=== PATIENT | female | born 1955 | race Caucasian/White ===

== ENCOUNTER 2018-06-17 12:00 | Outpatient (REF) | payer BC, SELFPAY ==
[2018-06-17 13:10] LABS: Bilirubin Negative (Negative); Blood Small (Negative); Clarity Clear; Glucose Negative (Negative); Ketones Negative (Negative); Leukocyte Esterase Small (Negative); Nitrite Negative (Negative); Specific Gravity 1.015 (1.005-1.025); Urobilinogen 0.2 EU/dL (Up TO 0.2); pH 8.5 (5-8)
[2018-06-17 13:23] LABS: Epithelial Cells Few HPF (Negative); WBC >50 HPF (0-5)
[2018-06-17 13:24] LABS: Bacteria Few HPF (Negative); Casts Negative LPF (Negative); Crystals Negative HPF (Negative); Mucus Negative (Negative)
[2018-06-17 13:25] LABS: C & S Indicated? Yes; Other Cells Few Renal (Negative)
== END 2018-06-17 12:20 ==
LOC: LBN 12:00
PROVIDERS: Visit Provider Family Medicine
DX: N39.0 Urinary tract infection, site not specified (principal)
CPT/HCPCS: 87077; 81003; 81015; 87086; 87186

== ENCOUNTER 2018-08-05 13:15 | Outpatient (REF) | payer BC, SELFPAY ==
[2018-08-05 14:53] LABS: Bilirubin Negative (Negative); Blood Moderate (Negative); Clarity Clear; Glucose Negative (Negative); Ketones Negative (Negative); Leukocyte Esterase Small (Negative); Nitrite Negative (Negative); Specific Gravity 1.015 (1.005-1.025); Urobilinogen 0.2 EU/dL (Up TO 0.2); pH 7.5 (5-8)
[2018-08-05 15:05] LABS: Bacteria Rare HPF (Negative); C & S Indicated? Yes; Casts Negative LPF (Negative); Crystals Negative HPF (Negative); Epithelial Cells Rare HPF (Negative); Mucus Negative (Negative); Other Cells Rare Transitional (Negative); RBC 0-2 (0-2); WBC >50 HPF (0-5)
== END 2018-08-05 13:35 ==
LOC: LBN 13:15
DX: R31.9 Hematuria, unspecified (principal)
CPT/HCPCS: 81003; 81015; 87086

== ENCOUNTER 2018-08-26 02:59 | Outpatient (CLI) | payer BC, SELFPAY ==
[2018-08-26 11:00] LABS: Bilirubin Negative (Negative); Blood Trace-intact (Negative); Clarity Clear; Glucose Negative (Negative); Ketones Negative (Negative); Leukocyte Esterase Moderate (Negative); Nitrite Negative (Negative); Specific Gravity 1.015 (1.005-1.025); Urobilinogen 0.2 EU/dL (Up TO 0.2); pH 7.5 (5-8)
[2018-08-26 11:11] LABS: Epithelial Cells Few HPF (Negative); Other Cells Few Transitional (Negative); RBC 0-2 (0-2)
[2018-08-26 11:12] LABS: Bacteria Rare HPF (Negative); C & S Indicated? Yes; Casts Negative LPF (Negative); Crystals Negative HPF (Negative); Mucus Trace (Negative)
== END 2018-08-26 03:19 ==
DX: N39.0 Urinary tract infection, site not specified (principal); R31.9 Hematuria, unspecified
CPT/HCPCS: 81003; 81015; 87086

== ENCOUNTER 2018-11-04 02:24 | Outpatient (CLI) | payer BC, SELFPAY ==
[2018-11-04 11:06] LABS: Bilirubin Negative (Negative); Blood Negative (Negative); Clarity Clear; Glucose Negative (Negative); Ketones Negative (Negative); Leukocyte Esterase Trace (Negative); Nitrite Negative (Negative); Specific Gravity 1.015 (1.005-1.025); Urobilinogen 0.2 EU/dL (Up TO 0.2); pH 7.5 (5-8)
[2018-11-04 11:48] LABS: Bacteria Rare HPF (Negative); C & S Indicated? Yes; Casts Negative LPF (Negative); Crystals Negative HPF (Negative); Epithelial Cells Few HPF (Negative); Mucus Negative (Negative); Other Cells Few Renal (Negative)
== END 2018-11-04 02:44 ==
DX: R31.21 Asymptomatic microscopic hematuria (principal)
CPT/HCPCS: 81003; 81015; 87086

== ENCOUNTER 2019-01-21 00:36 | Outpatient (CLI) | payer BC, SELFPAY ==
--- NOTE | 2019-01-21 07:50 | DI.MAMMO_ITS ---
SYMPTOM/DIAGNOSIS: SCREENING, Z12.31 MAMMOGRAM: Mammograms were interpreted according to the usual protocol including computer analysis with CAD system, tomosynthesis and C view imaging. The breasts are heterogeneously radiodense. No dominant masses or microcalcification. There has been no significant interval change. SUMMARY: No evidence of malignancy, Category 1. Yearly screening mammography is recommended. Breast density category C. MQSA ASSESSMENT OF FINDINGS: Negative. Category 1. Patient will receive a letter notifying them of these results. Bi-RADS category C. The breasts are heterogeneously dense, which may obscure small masses.
--- NOTE | 2019-01-21 07:54 | DI.RAD_ITS ---
SYMPTOM/DIAGNOSIS: SHOULDER PAIN M25.512 LEFT SHOULDER: The bony structures are normally mineralized. The glenohumeral joint is intact. There are mild degenerative changes involving the AC joint.
[2019-01-21 09:05] LABS: ALT 31 U/L (12-78); AST 24 U/L (15-37); Albumin 4.2 g/dL (3.4-5.0); Alkaline Phosphatase 97 U/L (46-116); Anion Gap 9.7 mmol/L (3-11); BUN 18 mg/dL (7-18); Bilirubin, Total 0.5 mg/dL (0.2-1.0); CO2 28.3 mmol/L (21.0-32.0); CREATININE 0.76 mg/dL (0.55-1.02); Calcium 9.2 mg/dL (8.5-10.1); Chloride 99 mmol/L (98-107); Glucose 92 mg/dL (70-100); Potassium 4.1 mmol/L (3.5-5.1); Sodium 137 mmol/L (136-145); Total Protein 8.1 g/dL (6.4-8.2)
== END 2019-01-21 00:56 ==
DX: Z12.31 Encounter for screening mammogram for malignant neoplasm of breast (principal); M25.512 Pain in left shoulder; M21.611 Bunion of right foot; M21.612 Bunion of left foot; M54.2 Cervicalgia; M85.80 Other specified disorders of bone density and structure, unspecified site; R31.21 Asymptomatic microscopic hematuria; Z00.00 Encounter for general adult medical examination without abnormal findings
CPT/HCPCS: 36415; 77063; 77067; 80053; 73030

== ENCOUNTER 2019-04-05 12:18 | Outpatient (REF) | payer BC, SELFPAY ==
--- NOTE | 2019-04-05 10:20 | PAPFTD_PTH ---
PATIENT: Anat Sneed LOC: [facility] U#:[id number] AGE/SX: 64/F ROOM: RE04/05/[address]: Uzma Eid MD : 1955 BED: DIS: 04/05/2019 SPEC #: [id number] RECD: 04/05/19 18:33 STATUS: OLIVER REQ #: [id number] JV: 04/05/19 10:[address]: Uzma Lucas DEPT: [facility] Cytology RECD BY: Chantal Walker ENTERED: 04/05/19 18:33 SP TYPE: PAPFTD YENY DR: Sera Pacheco APRN Tissues: 1 - CX/ENDOCX FOR PAP SMEARS Procedures: PAP THIN PREP/UVM Diagnostic Comments: [id number] (UNSATISFACTORY FOR EVALUATION)
== END 2019-04-05 12:38 ==
LOC: LBN 12:18
PROVIDERS: Visit Provider Internal Medicine
DX: R30.0 Dysuria (principal); Z12.4 Encounter for screening for malignant neoplasm of cervix; Z11.51 Encounter for screening for human papillomavirus (HPV)
CPT/HCPCS: 87077; 88175; 87086; 87186; 87624

== ENCOUNTER 2020-01-25 01:38 | Outpatient (CLI) | payer MEDICARE, BC, SELFPAY ==
[2020-01-25 08:59] LABS: ALT 34 U/L (14-59); AST 29 U/L (15-37); Alkaline Phosphatase 86 U/L (46-116); Anion Gap 9.1 mmol/L (3-11); BUN 17 mg/dL (7-18); Bilirubin, Total 0.5 mg/dL (0.2-1.0); CO2 27.9 mmol/L (21.0-32.0); CREATININE 0.79 mg/dL (0.55-1.02); Calcium 9.3 mg/dL (8.5-10.1); Calculated LDL 129 mg/dL (<100); Chloride 101 mmol/L (98-107); Cholesterol 248 mg/dL (<200); Glucose 92 mg/dL (74-106); HDL Cholesterol 110 mg/dL (40-60); Potassium 4.2 mmol/L (3.5-5.1); Sodium 138 mmol/L (136-145); Total Protein 7.6 g/dL (6.4-8.2); Triglyceride 45 mg/dL (<150)
== END 2020-01-25 01:58 ==
DX: M21.611 Bunion of right foot (principal); M21.612 Bunion of left foot; Z00.00 Encounter for general adult medical examination without abnormal findings; Z13.220 Encounter for screening for lipoid disorders; E78.5 Hyperlipidemia, unspecified
CPT/HCPCS: 36415; 80053; 80061

== ENCOUNTER 2021-01-26 02:36 | Outpatient (CLI) | payer MEDICARE, BC, SELFPAY ==
[2021-01-26 09:13] LABS: ALT 29 U/L (14-59); AST 26 U/L (15-37); Albumin 3.9 g/dL (3.4-5.0); Alkaline Phosphatase 92 U/L (46-116); Anion Gap 8.1 mmol/L (3-11); BUN 24 mg/dL (7-18); Bilirubin, Total 0.4 mg/dL (0.2-1.0); CO2 28.9 mmol/L (21.0-32.0); CREATININE 0.7 mg/dL (0.55-1.02); Calcium 9.1 mg/dL (8.5-10.1); Calculated LDL 135 mg/dL (<100); Chloride 102 mmol/L (98-107); Cholesterol 252 mg/dL (<200); Glucose 87 mg/dL (74-106); HDL Cholesterol 108 mg/dL (40-60); Potassium 4.2 mmol/L (3.5-5.1); Sodium 139 mmol/L (136-145); Total Protein 7.4 g/dL (6.4-8.2); Triglyceride 46 mg/dL (<150)
== END 2021-01-26 02:37 | disposition home or self-care (01) ==
LOC: LBO 02:36
DX: E78.5 Hyperlipidemia, unspecified (principal); Z00.00 Encounter for general adult medical examination without abnormal findings
CPT/HCPCS: 36415; 80053; 80061

== ENCOUNTER 2022-01-18 01:25 | Outpatient (CLI) | payer MEDICARE, BC, SELFPAY ==
--- OUTSIDE RECORDS SUMMARY | 2022-01-18 01:27 | XMS_ITS | Encounter Summary ---
:1955 Author Organization [facility] [place] [address] Care Team Providers Name Role Phone Sera Pacheco APRN Primary Care Provider Encounter Details Date Type Department Care Team Description 03/29/2020 Hospital Encounter Mammography/DXA at [facility], Encounter for [facility] screening mammogram [facility] cancer [facility] [address] [place], [place] [facility] [id number] GYNECOLOGY [phone] [place] [address] Social History Tobacco Use Types Packs/Day Years Used Date Never Smoker Smokeless Tobacco: Never Used Alcohol Use Standard Drinks/Week Comments Yes 0 (1 standard drink = 0.6 oz pure alcoho l) 1/2 beer per week Alcohol Habits Answer Date Recorded How often do you have a drink containing alcohol? Not asked How many drinks containing alcohol do you have on a Not aske d typical day when you are drinking? How often do you have six or more drinks on one Not asked occasion? Comment: 1/2 beer per week 04/21/2019 Sex Assigned at Date Recorded Not on file documented as of this encounter Medications at Time of Discharge Medication Sig Dispensed Refills Start Date End Date omega-3 acid ethyl esters Take 2 g by mouth 2 0 (LOVAZA) 1 gram Capsule times daily. multivitamin (THERAGRAN) Take 1 tablet by 0 tablet mouth daily. CALCIUM CITRATE/VITAMIN D3 Take by mouth. 0 (CITRACAL + D ORAL) ascorbic acid (VITAMIN C) Take 500 mg by mouth 0 500 mg tablet daily. Flaxseed Oil 1,000 mg Cap Take by mouth. 0 documented as of this encounter Plan of Treatment Not on filedocumented as of this encounter Procedures Procedure Name Priority Date/Time Associated Diagnosis Comme nts MAMMO SCREENING CAD Routine 03/29/2020 11:51 AM Encounter for Results for this AND SAGE BILATERAL EDT screening mammogram pr ocedure are in for breast cancer the result s section. documented in this encounter Results Mammo Screening Cad and Sage Bilateral (03/29/2020 11:51 AM EDT) Anatomical Region Laterality Modality Breast Bilateral Mammography Specimen (Source) Anatomical Location Collection Method / Collectio n Time Received Time / Laterality Volume Narrative 03/29/2020 12:14 PM EDT BILATERAL MAMMOGRAPHY REASON FOR EXAM: Screening TECHNIQUE: CC and MLO views were obtaine d of each breast using standard 2-D mammography as well as 3-D tomosynth esis. Computer aided detection was used. This is compared with prior images . FINDINGS: ??The breasts are heterogeneou sly dense, which may obscure small masses. There are no suspicious microcal cifications, masses, or areas of distortion. The pattern is stable. CONCLUSION: No mammographic evidence of malignancy. RECOMMENDATION: Regular screening mammograms starting be tween age 40 and 50 reduces the risk of from breast cancer. All screening tests have both risks and benefits. These risks and benefits should be assessed for each individual p atient through discussion with their provider to determine their prefer red breast cancer screening schedule. Women should report any breast changes t o a health care provider right away. Some women, because of their family hist ory, a genetic tendency, or other factors, should be screened with annual breast MRI as well as with mammograms. (The number of women who fal l into this category is very small). Patients and health care provide rs should discuss each patient? s history to decide if earlier screening a nd/or breast MRI are appropriate. Screening should continue as long as a w homero is in good health and is expected to live 10 years or longer. Screening mammography may not detect 10- 15% of breast cancers. A result letter has been sent to this pa yolanda by [facility]. BIRADS CATEGORY 1: NEGATIVE Angelika Dale MD IMG MAMMO ORDERABLES documented in this encounter Visit Diagnoses Diagnosis Encounter for screening mammogram for br east cancer documented in this encounter Care Teams Die Mounter Relationship Specialty Start Date End Date Sera Pacheco, PORCELAIN MIXER PCP - General Family Medicine 04/06/19 [address] [place] [address] documented as of this encounter
--- OUTSIDE RECORDS SUMMARY | 2022-01-18 01:27 | XMS_ITS | Encounter Summary ---
:1955 Author Organization [place] [address] Care Team Providers Name Role Phone Agustín Nesbitt MD Primary Care Provider Reason for Visit Reason Comments Back Pain radiates into top of butt bi lat Encounter Details Date Type Department Care Team Description 03/14/2011 Office Visit [facility], LBP (lo w back pain) Annemarie HIDE TRIMMER (Primary Dx) [facility] [address] [place], [place] [facility] [id number] [place] [address] [phone] Social History Tobacco Use Types Packs/Day Years Used Date Never Smoker Sex Assigned at Date Recorded Not on file documented as of this encounter Last Filed Vital Signs Vital Sign Reading Time Taken Comments Blood Pressure 112/68 03/14/2011 8:39 AM EDT Pulse 66 03/14/2011 8:39 AM EDT Temperature - - Respiratory Rate - - Oxygen Saturation - - Inhaled Oxygen Concentration - - Weight 49.4 kg (109 lb) 03/14/2011 8:39 AM EDT Height 156.2 cm (5' 1.5) 03/14/2011 8:39 AM EDT Body Mass Index 20.26 03/14/2011 8:39 AM EDT documented in this encounter Progress Notes [facility], HIDE TRIMMER - 03/14/2011 9:52 AM EDT Anat Sneed is a 56 y.o. female is seen today at the request of AGUSTÍN NESBITT MD. Chief Complaint: Back pain, coccyx pain History of present illness: In March she missed a step, landing on her tailbone, has had some component of back and coccyx pain since. Previous HNP Tx w/ PT. Symptoms today: She has low-back pain that is present daily, on rated 3/10. She has pain in her coccyx. Symptoms are worse with driving, feels better with standing. With yoga can have numbness in the anterior puckett and anterior thigh until she changes positions. Has been treated with a wedge for her coccyx pain. ROS: Can have night sweats, no other GI, , or constitutional symptoms. Observation: She is pleasant, has good eye contact, full range of affect. Has a stated height of 5 foot 1-1/2 inches. Stated weight of 190 pounds. She walks with a normal gait. Can heel walk and toe walk. Has grossly level shoulders, hips, knees. Has no pain with palpation along her spine. From her waist can flex forward to the floor, she extendsnormally, does have increased lower back pain with both of these maneuvers as well as lateral rotation and twisting. Motor evaluation 5 over 5. Has a normal sensory evaluation to touch. Reflexes are brisk in the upper and lower extremities. No White. No clonus. No Babinski. Palpable pulses x2. Imaging: Has coccyx pictures from last year with no formal read. Coccyx seems to be in fair alignment Impressions: Chronic back and coccyx pain. Recommendations: Anat Sneed is a 56 y.o. female is seen today for ongoing back and coccyx pain rated3/10. She denies any leg symptoms with the exception of intermittently when she does yoga that can contribute to left anterior puckett and thigh. She has a history of having a prior disc in 2001, this wastreated successfully with physical therapy. Subsequent MRI does show that the disc extrusion had been absorbed. Seems that she fell at home in March of last year and has had some component of pain since that time. She's been on treating with, coccyx cushion and [id number] anti-inflammatories that she can take on a limited basis due to to stomach irritation. We discussed treatment options. This would include physical therapy, therapeutic dose of anti-inflammatories. Given her pain is 3/10, she would not qualify for any injections or surgical intervention. We have agreed on not doing an MRI at this point unless we will be doing something different based onthe pictures. I have given her the back book. She'll try Mobic. If she's not improved, she may call back I'll be more than happy to see her back and consider imaging.. documented in this encounter Plan of Treatment Not on filedocumented as of this encounter Visit Diagnoses Diagnosis LBP (low back pain) - Primary Lumbago documented in this encounter Care Teams Grain Oilseed Or Pasture Farm Manager Relationship Specialty Start Date End Date Agustín Nesbitt MD PCP - General 05/15/10 04/05/19 [address] [place] [address] documented as of this encounter
--- OUTSIDE RECORDS SUMMARY | 2022-01-18 01:27 | XMS_ITS | Encounter Summary ---
:1955 Author Organization [facility] [place] [address] Care Team Providers Name Role Phone Uzma Jefferson MD Primary Care Provider Encounter Details Date Type Department Care Team Description 03/13/2011 Abstract [facility] at [facility], [facility], [facility] [place] [address] [facility] CLINIC [phone] [place] [address] (Wo rk) Social History Tobacco Use Types Packs/Day Years Used Date Never Assessed Sex Assigned at Date Recorded Not on file documented as of this encounter Plan of Treatment Not on filedocumented as of this encounter Visit Diagnoses Not on filedocumented in this encounter Care Teams Residential Appraiser Relationship Specialty Start Date End Date zUma Jefferson MD PCP - General 05/15/10 04/05/19 [address] [place] [address] documented as of this encounter
--- OUTSIDE RECORDS SUMMARY | 2022-01-18 01:27 | XMS_ITS | Encounter Summary ---
:1955 Author Organization [facility] [place] [address] Care Team Providers Name Role Phone Sera Pacheco APRN Primary Care Provider Encounter Details Date Type Department Care Team Description 06/19/2020 Telephone Obstetrics and [place]necology [place] [address] Social History Tobacco Use Types Packs/Day Years [...] on file documented as of this encounter Miscellaneous Notes Telephone Encounter - Keely Zamarripa RN - 06/19/2020 11:15 AM ESTSummary: dexascan TELEPHONE NOTE Caller: Keely Zamarripa RN Reason for call: A number of message have been sent to Dr Dale for this patient and she has not responded. The patient would like to know if she should keep doing what she has been doing? Could you please reach out to the patient? Plan/Instructions: Patient feeling exasperated because she has called several times and hasn't hard from Dr. Dale. Patient states it's totally fine if Dr. Dale wanted to reply to her in a [employer] portal message. * What Anat is looking for specifically: She had a Dexascan recently and was comparing it to her scan from 3 years ago. She is concerned about the changes and wanted to get your advice. Is the differences from the two different machines? Or is should she increase her Calcitrol? She is curently taking 2 a day, walks every day and increasing her calcium intake. ----- Message from Nasima Alston sent at 06/19/2020 11:04 AM EST ----- Regarding: DEXASCAN Caller's name: Anat Sneed Call back #: [phone] Patient's provider/team: Soumya Dale Reason for call: A number of message have been sent to Dr Dale for this patient and she has not responded. The patient would like to know if she should keep doing what she has been doing? Could you please reach out to the patient? documented in this encounter Plan of Treatment Not on filedocumented as of this encounter Visit Diagnoses Not on filedocumented in this encounter Care Teams Regional Guide Relationship Specialty Start Date End Date Sera Pacheco APRN PCP - General Family Medicine 04/06/19 [address] [place] [address] documented as of this encounter
--- OUTSIDE RECORDS SUMMARY | 2022-01-18 01:27 | XMS_ITS | Encounter Summary ---
:1955 Author Organization [facility] [place] [address] Care Team Providers Name Role Phone Sera Pacheco APRN Primary Care Provider Encounter Details Date Type Department Care Team Description 04/26/[address] [facility] [place] [address] UROLOGY DEPT [phone] [place], [place] [address] (Wo rk) Social History Tobacco Use Types [...] this encounter Miscellaneous Notes Telephone Encounter - Chuy Reyes - 04/26/2019 9:34 AM EST Patient calls asking that a referral be placed for [facility] REAL ESTATE MANAGER per her visit with Dr. Cadet last week. She originally thought she would be seen locally but has decided to come here for this appt. She also prefers to see a female provider. I have placed the referral for her. documented in this encounter Plan of Treatment Not on filedocumented as of this encounter Visit Diagnoses Not on filedocumented in this encounter Care Teams Oil And Gas Exploration Technician Relationship Specialty Start Date End Date Sera Pacheco, BIOTECH PRODUCTION SPECIALIST PCP - General Family Medicine 04/06/19 [address] [place] [address] documented as of this encounter
--- OUTSIDE RECORDS SUMMARY | 2022-01-18 01:27 | XMS_ITS | Encounter Summary ---
:1955 Author Organization [facility] [place] [address] Care Team Providers Name Role Phone Sera Pacheco APRN Primary Care Provider Reason for Referral Diagnostic Test (Routine) - Closed Specialty Diagnoses / Procedures Referred By Contact Refer red To Contact Radiology Diagnoses Asymptomatic menopausal state Osteopenia, unspecified location Angelika Dale MD [facility] Rad Xray Procedures DXA Central Spine, Hip, and/or Whole Body (Generic) [facility] [address] [place] [address] OBSTETRICS [place] [address] [place] [address] Referral ID Status Reason Start Date Expiration Date Visits V isits Requested Authorized [id number] Closed Specialty 03/29/2020 09/27/2021 1 1 Service Requested Reason for Visit Reason Comments Annual Exam Encounter Details Date Type Department Care Team Description 03/29/2020 Office Visit Obstetrics Angelika Rodriguez MD Osteopenia, unspecified location; Gynecology at [facility] Asymptomatic menopausal stat e [facility] [address] OBSTETRICS & [place], [place] GYNECOLOGY [address] [place] [address] [phone] Social History Tobacco Use Types Packs/Day Years [...] Sign Reading Time Taken Comments Blood Pressure 134/82 03/29/2020 12:53 PM EDT Pulse 89 03/29/2020 12:53 PM EDT Temperature 36.6 ??C (97.8 ??F) 03/29/2020 12:53 PM EDT Respiratory Rate - - Oxygen Saturation 100% 03/29/2020 12:53 PM EDT Inhaled Oxygen Concentration - - Weight 49.9 kg (110 lb 1.6 oz) 03/29/2020 12:53 PM EDT Height 155.8 cm (5' 1.34) 03/29/2020 12:53 PM EDT Body Mass Index 20.57 03/29/2020 12:53 PM EDT documented in this encounter Patient Instructions Patient InstructionsFosterAngelika MD - 03/29/2020 1:00 PM EDT It was good to see you. We will be in touch about your DEXA appointment. documented in this encounter Progress Notes Angelika Dale MD - 03/29/2020 1:00 PM EDT 65 yo here for annual exam. DId mammo today --results negative. No room server complaint --one episode of spotting after intercourse -- had significant vaginal dryness. Seen last year for fibroids seen on CT scan; she had known fibroids for many years and pre CT they had actually decreased in size. Was also having problems with frequent UTIs -- has not bled since last Oct so is very happy about that. No new health issues. Recalls having DEXA scan about 3 years ago and being told she had osteopenia. She wonder if she should have another. No abnl Paps since one a very long time (>30 years) ago Up to date with colonscopy. Recent labs reviewed; chol 248, LDL 129, HDL 110 No other new health issues. 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 BP today 134/8s Breasts: no mass Abd: nontender EGBUS: normal Bimanual: uterus AV, enlarged and irregular, jazmin 10-12 week size Will order DEXA. Discussed Paps no longer indicated. RTC for annual or prn. documented in this encounter Plan of Treatment Not on filedocumented as of this encounter Results DXA Central Spine, Hip, and/or Whole Body (Generic) (04/18/2020 1:23 PM EDT) Anatomical Region Laterality Modality C-spine, Hip N/A Other Specimen (Source) Anatomical Location Collection Method / Collectio n Time Received Time / Laterality Volume Impressions 04/18/2020 2:58 PM EDT The measurements fulfill the WHO classification for osteoporosis. The fracture risks are increased. Estimating Fracture Risk: ? The relationship between bone mineral de nsity (BMD) and risk of fracture is well established. As BMD decreases, risk incr eases. Quantifying risk is difficult and is usually limited to estimation of the relative risk - a term which may have limited value when trying to discuss an individual's risk. Estimating the absolute risk for a patient requires an understanding of the incidence rate in a given population and consideration of mu ltiple, partially independent, risk factors in addition to BMD. ? The World Health Organization (WHO) has developed a fracture risk prediction tool that calculates a ten-year risk of major osteoporotic fracture based on femoral neck bone density measurements a nd nine clinical risk factors for individuals who have not been treated fo r osteoporosis. This is available through an interactive web-based interfa ce (http://www.she.ac.uk/FRAX/) and can be used to estimate a given patient's ab solute risk of major osteoporotic fracture or hip fracture over the next 1 0 years. These estimates may prove useful when discussing risk with a patie nt. It is important, however, to understand the tool's limitations and ho w a given individual's risk might differ from the tool's estimate. The tool does not take into account the dose-response associated with most risk factors. For e xample, the significant increase in risk associated with multiple prior fractures compared to a single prior fracture is not taken into account. Similarly, the l ocation of a previous fracture, the amount of glucocorticoids and number of cigarettes smoked are not considered. These limitations are discussed in a Fr equently Asked Questions section of the FRAX website which you are encouraged to review. ? DEXA data sheets with BMD measurements a nd plots are available in [facility] under the imaging tab. Paper copies will be sent to providers without E- access. If you have received this report without e data sheet and do not have access to [employer], please contact Radiology [facility] at [phone] Friday thru Friday 8am-4pm. Thank you for letting us participate in the care of this patient. For questions regarding this report, please contact e number below. ? Narrative 04/18/2020 2:58 PM EDT EXAMINATION: DXA CENTRAL SPINE, HIP, AND/OR WHOLE BODY (GENERIC) CLINICAL HISTORY: f/u [prior screen iwht osteopenia. ??was at least 3 years ago, ,entered by ordering service TECHNIQUE: Scans were acquired at the val mbar spine, and left hip. COMPARISON: None FINDINGS: Femoral neck BMD: 0.571 g/cm2 Lowest T-score at a diagnostic region of interest: T-score: -2.8, BRODERICK: Lumbar spine, WHO di agnosis: Osteoporosis Procedure Note Jazzy Poe MD - 04/18/2020Formatt ing of this note might be different from the original. EXAMINATION: DXA CENTRAL SPINE, HIP, AND /OR WHOLE BODY (GENERIC) CLINICAL HISTORY: f/u [prior screen iwht osteopenia. was at least 3 years ago, ,entered by ordering service TECHNIQUE: Scans were acquired at the val mbar spine, and left hip. COMPARISON: None FINDINGS: Femoral neck BMD: 0.571 g/cm2 Lowest T-score at a diagnostic region of interest: T-score: -2.8, BRODERICK: Lumbar spine, WHO di agnosis: Osteoporosis IMPRESSION The measurements fulfill the WHO classif ication for osteoporosis. The fracture risks are increased. Estimating Fracture Risk: ? The relationship between bone mineral de nsity (BMD) and risk of fracture is well established. As BMD decreases, risk incr eases. Quantifying risk is difficult and is usually limited to estimation of the relative risk - a term which may have limited value when trying to discuss an individual's risk. Estimating the absolute risk for a patient requires an understanding of the incidence rate in a given population and consideration of mu ltiple, partially independent, risk factors in addition to BMD. ? The World Health Organization (WHO) has developed a fracture risk prediction tool that calculates a ten-year risk of major osteoporotic fracture based on femoral neck bone density measurements a nd nine clinical risk factors for individuals who have not been treated fo r osteoporosis. This is available through an interactive web-based [employer] (http://www.shef.ac.uk/FRAX/) and can be used to estimate a given patient's ab solute risk of major osteoporotic fracture or hip fracture over the next 1 0 years. These estimates may prove useful when discussing risk with a patie nt. It is important, however, to understand the tool's limitations and ho w a given individual's risk might differ from the tool's estimate. The tool does not take into account the dose-response associated with most risk factors. For e xample, the significant increase in risk associated with multiple prior fractures compared to a single prior fracture is not taken into account. Similarly, the l ocation of a previous fracture, the amount of glucocorticoids and number of cigarettes smoked are not considered. These limitations are discussed in a Fr equently Asked Questions section of the FRAX website which you are encouraged to review. ? DEXA data sheets with BMD measurements a nd plots are available in [employer] under the imaging tab. Paper copies will be sent to providers without E- access. If you have received this report without e data sheet and do not have access to [employer], please contact Radiology [facility] at [phone] Friday thru Friday 8am-4pm. Thank you for letting us participate in the care of this patient. For questions regarding this report, please contact e number below. Angelika Dale MD IMG DEXA ORDERABLES documented in this encounter Visit Diagnoses Diagnosis Osteopenia, unspecified location Asymptomatic menopausal state Asymptomatic postmenopausal status (age- related) (natural) Asymptomatic menopausal state Asymptomatic postmenopausal status (age- related) (natural) Osteopenia, unspecified location documented in this encounter Care Teams Colloid Mill Operator Relationship Specialty Start Date End Date Sera Pacheco APRN PCP - General Family Medicine 04/06/[address] [place] [address] documented as of this encounter
--- OUTSIDE RECORDS SUMMARY | 2022-01-18 01:27 | XMS_ITS | Encounter Summary ---
:1955 Author Organization [facility] [place] [address] Care Team Providers Name Role Phone Sera Pacheco APRN Primary Care Provider Reason for Referral Diagnostic Test (Routine) - Closed Specialty Diagnoses / Procedures Referred By Contact Refer red To Contact Radiology Diagnoses Hematuria, unspecified type Marcus Sher MD [facility] Rad Ct Scan Procedures CT Urogram [facility] [place] [address] [place] [address] Referral ID Status Reason Start Date Expiration Date Visits V isits Requested Authorized [id number] Closed Specialty 04/12/2019 06/10/2019 1 1 Service Requested Encounter Details Date Type Department Care Team Description 04/08/2019 Orders Only [place] [facility] [place] Sher, Hematuria, unspecified [facility] [place] [address] UROLOGY [place], [place] [address] Social History Tobacco Use Types Packs/Day Years Used Date Never Smoker Sex Assigned at Date Recorded Not on file documented as of this encounter Plan of Treatment Not on filedocumented as of this encounter Results CT Urogram (04/21/2019 8:58 AM EDT) Anatomical Region Laterality Modality Abdomen, Pelvis Computed Tomography Specimen (Source) Anatomical Location Collection Method / Collectio n Time Received Time / Laterality Volume Impressions 04/21/2019 10:34 AM EDT 1. ??Bilateral sub-5 mm renal cortical hypodensities are too small to characterize. 2. ??Otherwise negative CT urogram. 3. ??13 mm cystic, nonenhancing hepatic lesion with suggestion of internal septations, favored likely benign. ??Con manager hair ultrasound for further characterization. 4. ??Enlarged, lobulated likely fibroid uterus. This could be more fully evaluated by ultrasound. Thank you for letting us participate in the care of this patient. For questions regarding this report, please contact e number below. ? Narrative 04/21/2019 10:34 AM EDT EXAMINATION: CT UROGRAM CLINICAL HISTORY: gross hematuria TECHNIQUE: Helical CT of the abdomen and pelvis was performed prior to and following the intravenous administration of contrast. ??Administered 110 ml of OMNIPAQUE 350 mg/ml. 3D VR and MIP image s were reformatted on a separate workstation and reviewed as part of this study. ??No oral contrast was administered. COMPARISON: None. FINDINGS: Right kidney and ureter: No calculi, hyd ronephrosis or hydroureter. Sub-5 mm cortical hypodensity in the mid to infer ior pole which is too small to characterize, seen post contrast. No kala ling defect or abnormal wall thickening in the opacified collecting system, noti ng the distal portion of the ureter is nonopacified. Left kidney and ureter: No calculi, hydr onephrosis or hydroureter. Two sub-5 mm cortical hypodensities seen in the mid p ole on the nephrographic and delayed phases, which are too small to character ize. No filling defect or abnormal wall thickening in the collecting system,. Urinary bladder: No calculi or visible m ass. Imaged lower chest: Mild bibasilar depen dent atelectasis and subsegmental atelectasis/scarring. No visualized pleu ral pericardial effusions. Liver: Normal in size and attenuation. 1 3 mm slightly lobulated hypoattenuating lesion at the junction of the right and left hepatic lobes, measuring water attenuation without enhancement,with sug gestion of internal septations. Patent hepatic and portal veins. Bile ducts: Nondilated. Gallbladder: No calcified gallstones. No rmal caliber wall. Pancreas: Normal attenuation without alma lexie dilatation. Spleen: Normal. Adrenals: Normal. Vasculature: Nonaneurysmal abdominal aor ta. Lymph Nodes: No pathologically enlarged lymph nodes. Bowel: The absence of oral contrast limi ts the evaluation of the gastrointestinal tract. Unopacified loop s of bowel appear nondilated. Moderately large fecal load, which also limits eval uation. Peritoneum and mesentery: No ascites, fr ee air, or loculated fluid collection identified. No mesenteric inflammation v isualized. Abdominal wall: Normal. Reproductive organs: Enlarged, lobulated uterus with multiple scattered calcifications, likely representing a fi broid uterus with largest fibroid measuring on the order of 52 mm. Neither the right or the left ovary is well visualized. Osseous structures: No suspicious lesion s. 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 Slight le voconvex curvature of the lumbar spine. Procedure Note Brenda Lam MD - 04/21/2019Formatt ing of this note might be different from the original. EXAMINATION: CT UROGRAM CLINICAL HISTORY: gross hematuria TECHNIQUE: Helical CT of the abdomen and pelvis was performed prior to and following the intravenous administration of contrast. Administered 110 ml of OMNIPAQUE 350 mg/ml. 3D VR and MIP image s were reformatted on a separate workstation and reviewed as part of this study. No oral contrast was administered. COMPARISON: None. FINDINGS: Right kidney and ureter: No calculi, hyd ronephrosis or hydroureter. Sub-5 mm cortical hypodensity in the mid to infer ior pole which is too small to characterize, seen post contrast. No kala ling defect or abnormal wall thickening in the opacified collecting system, noti ng the distal portion of the ureter is nonopacified. Left kidney and ureter: No calculi, hydr onephrosis or hydroureter. Two sub-5 mm cortical hypodensities seen in the mid p ole on the nephrographic and delayed phases, which are too small to character ize. No filling defect or abnormal wall thickening in the collecting system,. Urinary bladder: No calculi or visible m ass. Imaged lower chest: Mild bibasilar depen dent atelectasis and subsegmental atelectasis/scarring. No visualized pleu ral pericardial effusions. Liver: Normal in size and attenuation. 1 3 mm slightly lobulated hypoattenuating lesion at the junction of the right and left hepatic lobes, measuring water attenuation without enhancement,with sug gestion of internal septations. Patent hepatic and portal veins. Bile ducts: Nondilated. Gallbladder: No calcified gallstones. No rmal caliber wall. Pancreas: Normal attenuation without alma lexie dilatation. Spleen: Normal. Adrenals: Normal. Vasculature: Nonaneurysmal abdominal aor ta. Lymph Nodes: No pathologically enlarged lymph nodes. Bowel: The absence of oral contrast limi ts the evaluation of the gastrointestinal tract. Unopacified loop s of bowel appear nondilated. Moderately large fecal load, which also limits eval uation. Peritoneum and mesentery: No ascites, fr ee air, or loculated fluid collection identified. No mesenteric inflammation v isualized. Abdominal wall: Normal. Reproductive organs: Enlarged, lobulated uterus with multiple scattered calcifications, likely representing a fi broid uterus with largest fibroid measuring on the order of 52 mm. Neither the right or the left ovary is well visualized. Osseous structures: No suspicious lesion s. 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 Slight le voconvex curvature of the lumbar spine. IMPRESSION 1. Bilateral sub-5 mm renal cortical hyp odensities are too small to characterize. 2. Otherwise negative CT urogram. 3. 13 mm cystic, nonenhancing hepatic le bill with suggestion of internal septations, favored likely benign. Consi oswaldo ultrasound for further characterization. 4. Enlarged, lobulated likely fibroid ut erus. This could be more fully evaluated by ultrasound. Thank you for letting us participate in the care of this patient. For questions regarding this report, please contact e number below. Marcus Sher MD IMG CT ORDERABLES documented in this encounter Visit Diagnoses Diagnosis Hematuria, unspecified type Hematuria, unspecified type documented in this encounter Care Teams Aquaculture Farm Manager Relationship Specialty Start Date End Date Sera Pacheco, RECORDS TECH PCP - General Family Medicine 04/06/19 [address] [place] [address] documented as of this encounter
--- OUTSIDE RECORDS SUMMARY | 2022-01-18 01:27 | XMS_ITS | Clinical Summary ---
:1955 Author Organization [facility] [place] [address] Care Team Providers Name Role Phone Sera Pacheco APRN Primary Care Provider Allergies Active Allergy Reactions Severity Noted Date Comments Gabapentin Palpitations 04/21/2019 Spacey Chlorpheniramine-Phenylpro Other (See Comments) 2010 Itchy watery eyes reyes scratchy throat Methylergonovine Maleate Nausea And Vomiting 9 Penicillins Other (See Comments) 04/21/2019 Gi upse t Hydrocodone-Acetaminophen Other (See Comments) Medium 019 wired' Medications Medication Sig Dispensed Refills Start Date End Date Status multivitamin Take 1 tablet by 0 Active (THERAGRAN) tablet mouth daily. CALCIUM CITRATE/VITAMIN Take by mouth. 0 Active D3 (CITRACAL + D ORAL) ascorbic acid (VITAMIN Take 500 mg by 0 Active C) 500 mg tablet mouth daily. Flaxseed Oil 1,000 mg Take by mouth. 0 Active Cap omega-3 acid ethyl Take 2 g by mouth 0 Active esters (LOVAZA) 1 gram 2 times daily. 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 Family History Medical History Relation Comments Diabetes Father Diabetes Mother Breast Cancer Neg Hx Relation Status Comments Father Mother Alive Social History Tobacco Use Types Packs/Day Years [...] Assigned at Date Recorded Not on file Last Filed Vital Signs Vital Sign Reading Time Taken Comments Blood Pressure 134/82 03/29/2020 12:53 PM EDT Pulse 89 03/29/2020 12:53 PM EDT Temperature 36.6 ??C (97.8 ??F) 03/29/2020 12:53 PM EDT Respiratory Rate 18 04/21/2019 9:31 AM EDT Oxygen Saturation 100% 03/29/2020 12:53 PM EDT Inhaled Oxygen Concentration - - Weight 49.9 kg (110 lb 1.6 oz) 03/29/2020 12:53 PM EDT Height 155.8 cm (5' 1.34) 03/29/2020 12:53 PM EDT Body Mass Index 20.57 03/29/2020 12:53 PM EDT Plan of Treatment Health Maintenance Due Date Last Done Comments Covid-19 Vaccine (#1) 1959 Hepatitis C Screening 01/10/1972 Tdap adult 1973 Tetanus vaccine 1973 Breast Cancer Share Decision Needed 1994 Colonoscopy 1999 Zoster vaccine (1 of 2) 01/10/2004 Advance Directive 2009 Pneumoccocal Vaccine: 65+ (1 - PCV) 2019 Influenza (Flu) vaccine (1 of - 02/21/2022 Influenza standard series) Breast Cancer screening 04/02/2023 04/02/2021, 03/29/2020 Bone Density Scan Completed 04/18/2020 Insurance Payer Benefit Plan / Subscriber ID Effective Phone Address T ype Group Dates [employer] [id number] 2019-Prese [address] [facility] [place] [address] [place] [address] MEDICARE MEDICARE PART [id number] 2020-Pres [phone] [place] [address] Care Teams Managed Care Director Relationship Specialty Start Date End Date Sera Pacheco, TECHNOLOGY SALES REPRESENTATIVE PCP - General Family Medicine 04/06/[address] [place] [address]
--- OUTSIDE RECORDS SUMMARY | 2022-01-18 01:27 | XMS_ITS | Encounter Summary ---
:1955 Author Organization [facility] [address] Care Team Providers Name Role Phone Sera Pacheco APRN Primary Care Provider Reason for Referral Diagnostic Test (Routine) - Closed Specialty Diagnoses / Procedures Referred By Contact Refer red To Contact Radiology Diagnoses Asymptomatic menopausal state Osteopenia, unspecified location Angelika Dale MD [facility] Rad Xray Procedures DXA Central Spine, Hip, and/or Whole Body (Generic) [facility] CENTER [address] [facility] OB[place] [address] [place] [id number] Referral ID Status Reason Start Date Expiration Date Visits V isits Requested Authorized [id number] Closed Specialty 03/29/2020 09/27/2021 1 1 Service Requested Reason for Visit Diagnostic Test (Routine) - Closed Specialty Diagnoses / Procedures Referred By Contact Refer red To Contact Radiology Diagnoses Asymptomatic menopausal state Osteopenia, unspecified location Angelika Dale MD [facility] Rad Xray Procedures DXA Central Spine, Hip, and/or Whole Body (Generic) [facility] C[facility] 1 [facility] OBSTETRICS [place] [address] [place] [address] Referral ID Status Reason Start Date Expiration Date Visits V isits Requested Authorized [id number] Closed Specialty 03/29/2020 09/27/2021 1 1 Service Requested Encounter Details Date Type Department Care Team Description 04/18/2020 [place] [facility] [place]ika Dale, Asymptomatic menopausal stat e ; [address] [place] Osteopenia, unspecified location [facility] [address] CENTER [phone] OBSTETRICS & [place] [address] Social History Tobacco Use Types Packs/Day Years [...] Name Priority Date/Time Associated Diagnosis Comme nts DXA CENTRAL SPINE, Routine 04/18/2020 1:23 PM Asymptomatic Res ults for this HIP, AND/OR WHOLE EDT menopausal sta te procedure are in BODY (GENERIC) Osteopenia, the results unspecified location section . documented in this encounter Results DXA Central Spine, Hip, [...] available through an interactive web-based interfa ce (http://www.shef.ac.uk/FRAX/) and can be used to [...] measurements a nd plots are available in [employer]re[employer] under the imaging tab. Paper copies will be sent to providers without [employer] access. If you have received this report without e data sheet and do not have access to [facility], please contact Radiology [facility] at [phone] Friday thru Friday 8am-4pm. Thank you for letting us participate in the care of this patient. For questions regarding this report, please contact e number below. ? Electronically signed by: Jazzy Poe MD, [facility] ([phone]), at 04/18/2020 2:58 PM Narrative 04/18/2020 2:58 PM EDT EXAMINATION: DXA [...] available through an interactive web-based interfa ce (http://www.shef.ac.uk/FRAX/) and can be used to [...] measurements a nd plots are available in EAdreima under the imaging tab. Paper copies will be sent to providers without [employer] access. If you have received this report without th e data sheet and do not have access to [employer], please contact Radiology [facility] at [phone] Friday thru Friday 8am-4pm. Thank you for letting us participate in the care of this patient. For questions regarding this report, please contact e number below. Angelika Dale MD IMG DEXA ORDERABLES documented in this encounter Visit Diagnoses Diagnosis Asymptomatic menopausal state Asymptomatic postmenopausal status (age- related) (natural) Osteopenia, unspecified location documented in this encounter Care Teams Nurse Midwife Relationship Specialty Start Date End Date Sera Pacheco, SUPERVISOR GROUNDS PCP - General Family Medicine 04/06/[address] [place] [address] [address] [place] [address] documented as of this encounter
--- OUTSIDE RECORDS SUMMARY | 2022-01-18 01:27 | XMS_ITS | Encounter Summary ---
:1955 Author Organization [facility] [place] [address] Care Team Providers Name Role Phone Uzma Jefferson MD Primary Care Provider Encounter Details Date Type Department Care Team Description 01/02/2018 Ancillary Procedure Radiology Library at Sera Pacheco APRN [facility] [id number] [place] [address] (Wo rk) [phone] Social History Tobacco Use Types Packs/Day Years Used Date Never Smoker Sex Assigned at Date Recorded Not on file documented as of this encounter Plan of Treatment Not on filedocumented as of this encounter Procedures Procedure Name Priority Date/Time Associated Diagnosis Comme nts FILM LIBRARY Routine 01/02/2018 12:00 AM Results for this STORAGE ONLY MAMMO EDT procedure are in the results section. documented in this encounter Results Film Library- Storage Only Mammo (01/02/2018 12:00 AM EDT) Specimen (Source) Anatomical Location Collection Method / Collectio n Time Received Time / Laterality Volume Narrative ASHIA - 01/05/2020 1:44 PM EDT This exam is auto-finalizing. It's purpo se is for storage only. Sera Pacehco APRN IMG FILM LIBRARY ORDERABLES Performing Organization Address City/State/ZIP Code Phon e Number [place], [place] documented in this encounter Visit Diagnoses Not on filedocumented in this encounter Care Teams Aeronautical Engineering Professor Relationship Specialty Start Date End Date Uzma Jefferson MD PCP - General 05/15/10 04/05/19 [address] [place] [address] documented as of this encounter
--- OUTSIDE RECORDS SUMMARY | 2022-01-18 01:27 | XMS_ITS | Encounter Summary ---
:1955 Author Organization [facility] [place] [address] Care Team Providers Name Role Phone Sera Pacheco APRN Primary Care Provider Reason for Referral Diagnostic Test (Routine) - Closed Specialty Diagnoses / Procedures Referred By Contact Refer red To Contact Radiology Diagnoses Hematuria, unspecified type Marcus Sher MD [facility] Rad Ct Scan Procedures CT Urogram [place] [address] [place] [address] Referral ID Status Reason Start Date Expiration Date Visits V isits Requested Authorized [id number] Closed Specialty 04/12/2019 06/10/2019 1 1 Service Requested Reason for Visit Diagnostic Test (Routine) - Closed Specialty Diagnoses / Procedures Referred By Contact Refer red To Contact Radiology Diagnoses Hematuria, unspecified type Marcus Sher MD [facility] Rad Ct Scan Procedures CT Urogram [place] [address] [place] [address] Referral ID Status Reason Start Date Expiration Date Visits V isits Requested Authorized [id number] Closed Specialty 04/12/2019 06/10/2019 1 1 Service Requested Encounter Details Date Type Department Care Team Description 04/21/[address] Scan at [facility] Marcus Sher [facility] MD Soumya unspecified type Drive [place] CENTER [address] UROLOGY [phone] [place] [address] Social History Tobacco Use Types Packs/Day Years [...] by 0 tablet mouth daily. CALCIUM CITRATE/VITAMIN Take by mouth. 0 D3 (CITRACAL + D ORAL) ascorbic acid (VITAMIN C) Take 500 mg by mouth 0 500 mg tablet daily. Flaxseed Oil 1,000 mg Cap Take by mouth. 0 omega-3 acid ethyl esters Daily 0 06/17/2018 03/29/2020 (Lovaza) 1 gram Capsule metroNIDAZOLE (NORITATE) Apply topically 0 03/29/2020 1 % creamIndications: daily. To face daily acne rosacea Indications: Acne Rosacea documented as of this encounter Miscellaneous Notes Ancillary Services Notes - Cece Tavarez - 04/21/2019 8:55 AM EDT [facility] INTERVENTIONAL RADIOLOGY CT UROGRAM PROCEDURE NAME: ANAT SNEED ADDRESS: [address] [place] [address] HOME PHONE: [phone] (home) [phone] (work) MOBILE NUMBER: Telephone Information: REFERRING PROVIDER: Marcus Sher Allergies Allergen Reactions ? ? Hay Fever & Allergy Relief [Chlorpheniramine-Phenylpropan] Other (See Comments) Itchy watery eyes scratchy throat PERTINENT PMH: There is no problem list on file for this patient. MED'S: Prior to Admission medications Medication Sig Start Date End Date Taking? Authorizing Provider multivitamin (THERAGRAN) tablet Take 1 tablet by mouth daily. PROVIDER, HISTORICAL CALCIUM CITRATE/VITAMIN D3 (CITRACAL + D ORAL) Take by mouth. PROVIDER, HISTORICAL ascorbic acid (VITAMIN C) 500 mg tablet Take 500 mg by mouth daily. PROVIDER, HISTORICAL Flaxseed Oil 1,000 mg Cap Take by mouth. PROVIDER, HISTORICAL metroNIDAZOLE (NORITATE) 1 % cream Apply topically daily. To face daily Indications: Acne Rosacea PROVIDER, HISTORICAL PIV PLACED: (site) MED ORDERED: LASIX 10 MG IV GIVEN @: INITIAL VITAL SIGNS: 135/56 POST VITAL SIGNS: 133/91 DISCHARGE TIME: documented in this encounter Plan of Treatment Not on filedocumented as of this encounter Procedures Procedure Name Priority Date/Time Associated Diagnosis Comme nts CT SCAN UROLOGY Routine 04/21/2019 8:58 AM Hematuria, Result s for this EDT unspecified type procedure a re in the results section. documented in this encounter Results CT Urogram (04/21/2019 8:58 [...] of internal septations, favored likely benign. ??Con entrepreneur ultrasound for further characterization. 4. ??Enlarged, lobulated likely fibroid uterus. This could be more fully evaluated by ultrasound. Thank you for letting us participate in the care of this patient. For questions regarding this report, please contact th e number below. ? Narrative 04/21/2019 10:34 [...] encounter Visit Diagnoses Diagnosis Hematuria, unspecified type documented in this encounter Administered Medications Inactive Administered Medications - up to 3 most recent administrations Medication Order MAR Action Action Date Dose Rate Site iohexol (OMNIPAQUE) 350 mg/mL Given 04/21/2019 8:55 AM EDT 110 m Ls solution 0-200 mL 0-200 mL, Intravenous, ONCE PRN, 1 dose, Starting on Fri04/21/19 at 0855, Until Fri04/21/19 at 0855, Per Protocol, Warning Vesicant/Irritant Medication , Radiology Contrast, Routine documented in this encounter Care Teams International Bank Manager Relationship Specialty Start Date End Date Sera Pacheco APRN PCP - General Family Medicine 04/06/[address] [place] [address] documented as of this encounter
--- OUTSIDE RECORDS SUMMARY | 2022-01-18 01:27 | XMS_ITS | Encounter Summary ---
:1955 Author Organization [facility] [place] [address] Care Team Providers Name Role Phone Sera Pacheco APRN Primary Care Provider Reason for Referral Diagnostic Test (Routine) - Closed Specialty Diagnoses / Procedures Referred By Contact Refer red To Contact Radiology Diagnoses Encounter for screening mammogram for breast cancer Sera Pacheco APRN [facility] Rad Mammography Procedures Mammo Screening Cad and Sage Bilateral [address] [place], [place] [address] [place] [address] Phone: Referral ID Status Reason Start Date Expiration Date Visits V isits Requested Authorized [id number] Closed Specialty 01/29/2021 08/01/2022 1 Service Requested Reason for Visit Diagnostic Test (Routine) - Closed Specialty Diagnoses / Procedures Referred By Contact Refer red To Contact Radiology Diagnoses Encounter for screening mammogram for breast cancer Sera Pacheco APRN [facility] Rad Mammography Procedures Mammo Screening Cad and Sage Bilateral [address] [place], [place] [address] [place] [address] Phone: Referral ID Status Reason Start Date Expiration Date Visits V isits Requested Authorized [id number] Closed Specialty 01/29/2021 08/01/2022 1 1 Service Requested Encounter Details Date Type Department Care Team Description 04/02/2021 Hospital Encounter Mammography/DXA at Sera Pacheco, Encounter for [facility] [employer]OVER [employer]ER screening mammogram [address] [place] [address] [phone] Social History Tobacco Use Types Packs/Day Years [...] Diagnosis Comme nts MAMMO SCREENING CAD Routine 04/02/2021 9:54 AM Encounter for R esults for this AND SAGE BILATERAL EDT screening mammogram pr ocedure are in for breast cancer the result s section. documented in this encounter Results Mammo Screening Cad and Sage Bilateral (04/02/2021 9:54 AM EDT) Anatomical Region Laterality Modality Breast Bilateral Mammography Specimen (Source) Anatomical Location Collection Method / Collectio n Time Received Time / Laterality Volume Narrative 04/02/2021 10:08 AM EDT BILATERAL MAMMOGRAPHY REASON FOR EXAM: Screening [...] letter has been sent to this pa tient by [facility]. BIRADS CATEGORY 1: NEGATIVE Electronically signed by: HUSEYIN MERCADO MD Sera Pacheco APRN IMG MAMMO ORDERABLES documented in this encounter Visit Diagnoses Diagnosis Encounter for screening mammogram for br east cancer documented in this encounter Care Teams Checking Clerk Relationship Specialty Start Date End Date Sera Pacheco APRN PCP - General Family Medicine 04/06/[address] [place] [address] documented as of this encounter
--- OUTSIDE RECORDS SUMMARY | 2022-01-18 01:27 | XMS_ITS | Encounter Summary ---
:1955 Author Organization [facility] [place] [address] Care Team Providers Name Role Phone Sera Pacheco APRN Primary Care Provider Reason for Visit Reason Comments Establish Care Consultation (Routine) - Closed Specialty Diagnoses / Procedures Referred By Contact Refer red To Contact Obstetrics and Diagnoses ABNORMAL UTERUS ON CT EXAM HERE AT [facility] - PT PREFERS FEMALE PROVIDER Hitesh Cadet, [facility] Atomic Spectroscopist 5l Gynecology [facility] [address] [facility] [address] [place] [address] Referral ID Status Reason Start Date Expiration Date Visits Requ ested Visits Authorized [id number] Closed 04/26/2019 04/25/2020 1 1 Encounter Details Date Type Department Care Team Description 06/30/2019 Office Visit Obstetrics and Gynecology Angelika Dale MD Fibroids at [facility] Esvin crandall OBSTETRICS & [place] [address] [place] [address] [phone] (Wo rk) Social History Tobacco Use Types [...] Sign Reading Time Taken Comments Blood Pressure 134/88 06/30/2019 2:21 PM EST Pulse 79 06/30/2019 2:21 PM EST Temperature 36.8 ??C (98.3 ??F) 06/30/2019 2:21 PM EST Respiratory Rate - - Oxygen Saturation 100% 06/30/2019 2:21 PM EST Inhaled Oxygen Concentration - - Weight 51 kg (112 lb 6.4 oz) 06/30/2019 2:21 PM EST Height 155.8 cm (5' 1.34) 06/30/2019 2:21 PM EST Body Mass Index 21 06/30/2019 2:21 PM EST documented in this encounter Progress Notes Angelika Dale MD - 06/30/2019 2:00 PM EST 64 yo referred for abnl uterus on CT scan, which was done during workup of hematuria. Findings were Enlarged, lobulated uterus with multiple scattered calcifications, likely representing a fibroid uterus with largest fibroid measuring on the order of 52 mm. Neither the right or the left ovary is well visualized, She has had fibroids for many years; review of prior sono rpeort from 2005 describes multuple fibroids with larget being 10 cm; she thinks she had another sono done in around Which described some decrease in the size of the fibroids. She has no current sx. No PMB. She has had issues with UTI's recently with 2-3 over the last 6 months. In all cases she has had significant hematuria, and she has been seen by Urology here and had cystoscopy and cytology. The consensus is that the hematuria was secondary to infection. She wonders if the fibroids could somehow be related.She does not have other bladder complaints. She is sexually active and uses a lubricant for vaginal dryness. She does wonder if there is something she could use on a more regular basis. Her last pap smear was last year and was normal. She has no h/o abnl Paps. She is generally in excellent health We discussed fibroids and UTIs. She is confident that the fibroids have decreased in size and she isasx, unless they might somehow be related to her UTIs. I told her I thought this unlikely, and that in the absence of sx I would not recommend any treatment or further surveillance of the fibroids. Noted that UTIs may cause fewer sx in older women, so perhaps she is not getting any 'early sx prior tothe development of hematuria. Discussed possible association with sexual activity and that prophylaxis could be tried if she continues to have frequent UTIs. She will RTC prn documented in this encounter Plan of Treatment Not on filedocumented as of this encounter Visit Diagnoses Diagnosis Fibroids Leiomyoma of uterus, unspecified documented in this encounter Care Teams Blackjack Pit Boss Relationship Specialty Start Date End Date Sera Pacheco, PRECISION PRINTING WORKER PCP - General Family Medicine 04/06/[address] [place] [address] documented as of this encounter
--- OUTSIDE RECORDS SUMMARY | 2022-01-18 01:27 | XMS_ITS | Encounter Summary ---
:1955 Author Organization [facility] [place] [address] Care Team Providers Name Role Phone Uzma Jefferson MD Primary Care Provider Encounter Details Date Type Department Care Team Description 12/27/2016 Ancillary Procedure Radiology Library at Sera Pacheco APRN [facility] [id number] [place] [address] (Wo rk) [phone] Social History Tobacco Use Types Packs/Day Years Used Date Never Smoker Sex Assigned at Date Recorded Not on file documented as of this encounter Plan of Treatment Not on filedocumented as of this encounter Procedures Procedure Name Priority Date/Time Associated Diagnosis Comme nts FILM LIBRARY Routine 12/27/2016 12:00 AM Results for this STORAGE ONLY MAMMO EDT procedure are in the results section. documented in this encounter Results Film Library- Storage Only Mammo (12/27/2016 12:00 AM EDT) Specimen (Source) Anatomical Location Collection Method / Collectio n Time Received Time / Laterality Volume Narrative ASHIA - 01/05/2020 1:47 PM EDT This exam is auto-finalizing. It's purpo se is for storage only. Sera Pacheco APRN IMG FILM LIBRARY ORDERABLES Performing Organization Address City/State/ZIP Code Phon e Number [place], [place] documented in this encounter Visit Diagnoses Not on filedocumented in this encounter Care Teams Vice President Of Consulting Services Relationship Specialty Start Date End Date Uzma Jefferson MD PCP - General 05/15/10 04/05/19 [address] [place] [address] documented as of this encounter
--- OUTSIDE RECORDS SUMMARY | 2022-01-18 01:27 | XMS_ITS | Encounter Summary ---
:1955 Author Organization [facility] [place] [address] Care Team Providers Name Role Phone Sera Pacheco APRN Primary Care Provider Reason for Visit Reason Comments Hematuria Consultation (Routine) - Specialty Diagnoses / Procedures Referred By Contact Refer red To Contact Urology Diagnoses Hematuria, unspecified Uzma Lucas MD [facility] [address] [place], [place] [address] [place] [address] Phone: Fax: Referral ID Status Reason Start Date Expiration Date Visits V isits Requested Authorized [id number] Consult, Test 04/05/2019 10/05/2019 [facility] PCP Updated and/or Approved Encounter Details Date Type Department Care Team Description 04/21/2019 Office Visit Urology at [facility] Hitesh Cadet Hematuria, unspecified [facility] [place] [address] UROLOGY DEPT [phone] [place], [place] [address] Social History Tobacco Use Types Packs/Day Years [...] Sign Reading Time Taken Comments Blood Pressure 130/86 04/21/2019 9:31 AM EDT Pulse 88 04/21/2019 9:31 AM EDT Temperature 36.4 ??C (97.6 ??F) 04/21/2019 9:31 AM EDT Respiratory Rate 18 04/21/2019 9:31 AM EDT Oxygen Saturation 100% 04/21/2019 9:31 AM EDT Inhaled Oxygen Concentration - - Weight 49.9 kg (110 lb) 04/21/2019 9:31 AM EDT Height 154.9 cm (5' 1) 04/21/2019 9:31 AM EDT Body Mass Index 20.78 04/21/2019 9:31 AM EDT documented in this encounter Patient Instructions Patient InstructionsVinicius Dickerson LPN - 04/21/2019 9:40 AM EDT Instructions following Cystoscopy Activity: As tolerated by your comfort level. Fluids: You should increase your water today. Avoid coffee, tea and cola. You do not need to exceed 64 ounces of water today. Urination: You will likely have a small amount of blood in your urine for the next several days. This is normal; however, if you are passing large amounts of blood clots or are unable to void please call our office at [phone] before 5PM or [phone] after hours. Please call if: * you have copious blood in your urine * fevers greater than 101.3 F * you are unable to void The number for questions is [phone] before 5 PM weekdays and [phone] after 5 PM and weekends. Follow-up: With Dr. Cadet documented in this encounter Progress Notes Hitesh Cadet MD - 04/21/2019 9:40 AM EDT UROLOGY NEW PATIENT VISIT CC: hematuria HPI: 64 yo female referred to me for gross hematuria. She has had several episodes since May 2018. This has been attributed to UTIs. The last episode was more severe and she was passing clots on Apr 05. She denies any pain or fevers. Urine cx: 04/05/19 - 10,000-50,000 proteus mirabilis, resistant to nitrofurantoin 11/04/18 - ,000-50,000 mixed gram + marcello History reviewed. No pertinent past medical history. Past Surgical History: Procedure Laterality Date ??? ROTATOR CUFF REPAIR Social History Socioeconomic History ??? Marital status: Spouse name: None ??? Number of children: None ??? Years of education: None ??? Highest education level: None Occupational History ??? None Social Needs ??? Financial resource strain: None ??? Food insecurity: Worry: None Inability: None ??? Transportation needs: Medical: None Non-medical: None Tobacco Use ??? Smoking status: Never Smoker ??? Smokeless tobacco: Never Used Substance and Sexual Activity ??? Alcohol use: Yes Comment: 1/2 beer per week ??? Drug use: None ??? Sexual activity: None Lifestyle ??? Physical activity: Days per week: None Minutes per session: None ??? Stress: None Relationships ??? Social connections: Talks on phone: None Gets together: None Attends faith service: None Active member of club or organization: None Attends meetings of clubs or organizations: None Relationship status: None ??? Intimate partner violence: Fear of current or ex partner: None Emotionally abused: None Physically abused: None Forced sexual activity: None Other Topics Concern ??? None Social History Narrative ??? None Family History Problem Relation Age of Onset ??? Diabetes Father ??? Diabetes Mother , works in a business office, 2 children ROS: General Health: GENERAL: Denies fevers, sweats, chills, anorexia, denies weight changes. DRUG SAFETY ASSOCIATE: Denies loss of consciousness, denies balance difficulty, denies pins/needle sensations. HEENT: Denies headaches and vision changes. RESP: Denies cough or breathing difficulties. CVS: Denies chest pain and MOSS. No claudication. GI: Denies nausea/vomiting/diarrhea/constipation. Normal appetite and bowels. : see hpi MUSCULOSKELETAL: Positive for joint and muscle pain. Denies back pain. SKIN: Denies rashes. HEME: Denies bleeding tendencies, bruisability. EXAMINATION: Most Recent Vitals: 04/21/19 0931 BP: 130/86 Pulse: 88 Resp: 18 Temp: 36.4 ??C (97.6 ??F) SpO2: 100% PainSc: 0 - No pain GENERAL: Well appearing female in NAD. Healthy appearance. HEENT: Atraumatic, normocephalic. Anicteric sclera. MMM. NECK: Supple with no significant lymphadenopathy. RESPIRATORY: Unlabored respirations with no audible wheezing. CARDIAC: Regular rhythm with no audible MGR. ABDOMEN: soft, nontender, nondistended. No rebound or guarding. Palpable, mobile mass in the lower abdomen/pelvis. BACK: No CVA tenderness NEUROLOGIC: Alert and oriented x 3. EXTREMITIES: Warm and well perfused with no pitting edema. LABS: none IMAGING: EXAMINATION: CT UROGRAM 04/21/19 ?? CLINICAL HISTORY: gross hematuria ?? TECHNIQUE: Helical CT of the abdomen and pelvis was performed prior to and following the intravenous administration of contrast. Administered 110 ml of OMNIPAQUE 350 mg/ml. 3D VR and MIP images were reformatted on a separate workstation and reviewed as part of this study. No oral contrast was administered. ?? COMPARISON: None. ?? FINDINGS: ?? Right kidney and ureter: No calculi, hydronephrosis or hydroureter. Sub-5 mm cortical hypodensity in the mid to inferior pole which is too small to characterize, seen post contrast. No filling defect or abnormal wall thickening in the opacified collecting system, noting the distal portion of the ureter is nonopacified. ?? Left kidney and ureter: No calculi, hydronephrosis or hydroureter. Two sub-5 mm cortical hypodensities seen in the mid pole on the nephrographic and delayed phases, which are too small to characterize. No filling defect or abnormal wall thickening in the collecting system,. ?? Urinary bladder: No calculi or visible mass. ?? Imaged lower chest: Mild bibasilar dependent atelectasis and subsegmental atelectasis/scarring. No visualized pleural pericardial effusions. ?? Liver: Normal in size and attenuation. 13 mm slightly lobulated hypoattenuating lesion at the junction of the right and left hepatic lobes, measuring water attenuation without enhancement,with suggestion of internal septations. Patent hepatic and portal veins. Bile ducts: Nondilated. Gallbladder: No calcified gallstones. Normal caliber wall. Pancreas: Normal attenuation without ductal dilatation. Spleen: Normal. Adrenals: Normal. Vasculature: Nonaneurysmal abdominal aorta. Lymph Nodes: No pathologically enlarged lymph nodes. ?? Bowel: The absence of oral contrast limits the evaluation of the gastrointestinal tract. Unopacified loops of bowel appear nondilated. Moderately large fecal load, which also limits evaluation. Peritoneum and mesentery: No ascites, free air, or loculated fluid collection identified. No mesenteric inflammation visualized. Abdominal wall: Normal. ?? Reproductive organs: Enlarged, lobulated uterus with multiple scattered calcifications, likely representing a fibroid uterus with largest fibroid measuring on the order of 52 mm. Neither the right or the left ovary is well visualized. Osseous structures: No suspicious lesions. 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 Slight levoconvex curvature of the lumbar spine. ?? IMPRESSION 1. Bilateral sub-5 mm renal cortical hypodensities are too small to characterize. 2. Otherwise negative CT urogram. 3. 13 mm cystic, nonenhancing hepatic lesion with suggestion of internal septations, favored likely benign. Consider ultrasound for further characterization. 4. Enlarged, lobulated likely fibroid uterus. This could be more fully evaluated by ultrasound. ASSESSMENT/PLAN: Gross hematuria Large, calcified and lobulated uterus. I discussed the findings with the patient and recommended a referral to gynecology to assess the enlarged uterus. She has a devulcanizer tender locally and would prefer to see him. I also explained to her the findings of the cystic liver lesion which she was aware of and has been there for years (hemangioma). Small bilateral renal cortical hypodensities statistically simple cysts. I recommended to proceed with an office cystoscopy to complete the hematuria workup (see other note). documented in this encounter Plan of Treatment Not on filedocumented as of this encounter Results Cystoscopy (04/21/2019 11:00 AM EDT) Narrative Hitesh Cadet MD - 04/21/2019 11: 00 AM EDT Hitesh Cadet MD ? 04/21/2019 12:07 PM Patient: Anat Sneed Date of : 1955 SUBJECTIVE: This 64 y.o. years-old femal e presents for cystoscopy because of a history of gross hematuria. PROCEDURE - CYSTOSCOPY: Informed consent obtained from the patie nt and the patient was correctly identified. The patient was cystoscoped with a flexi ble scope following routine skin cleansing and drapping. ??2 % xylocaine gel was instillated into the urethra. The urethr a was normal. The external genitalia were normal. The blad oswaldo mucosa was normal. Ureteral orifices were located in an ort hotopic position, effluxing clear urine. No bladder tumors or foreign bodies were noted. The patient tolerated the procedure well . Patient was given ciprofloxacin IMPRESSION: Normal bladder PLAN: 1) Repeat cysto if and when the patient has gross hematuria. 2) urine cytology. 3) follow up with gynecology to discuss abnormal uterus. Hitesh Cadet MD PROCEDURE ORDERABLES documented in this encounter Visit Diagnoses Diagnosis Hematuria, unspecified type documented in this encounter Care Teams Aircraft Engine Mechanic Supervisor Relationship Specialty Start Date End Date Sera Pacheco APRN PCP - General Family Medicine 04/06/[address] [place] [address] [address] [place] [address] documented as of this encounter
--- OUTSIDE RECORDS SUMMARY | 2022-01-18 01:27 | XMS_ITS | Encounter Summary ---
:1955 Author Organization [facility] [place] [address] Care Team Providers Name Role Phone Sera Pacheco APRN Primary Care Provider Reason for Visit Consultation (Routine) - Specialty Diagnoses / Procedures Referred By Contact Refer red To Contact Urology Diagnoses Hematuria, unspecified Uzma Lucas MD [facility] [address] [place], [place] [address] [place] [address] Phone: Fax: Referral ID Status Reason Start Date Expiration Date Visits V isits Requested Authorized [id number] Consult, Test 04/05/2019 10/05/2019 [facility] PCP Updated and/or Approved Encounter Details Date Type Department Care Team Description 04/21/2019 Office Visit Urology at [facility] Hitesh Cadet Hematuria, unspecified [facility] MD [address] [place] [address] UROLOGY DEPT [phone] [place], [place] [address] Social History Tobacco Use Types [...] on file documented as of this encounter Patient Instructions Patient InstructionsVinicius Dickerson LPN - 04/21/2019 11:00 AM EDT Instructions following Cystoscopy Activity: As [...] to void please call our office at [phone] before 5PM or [phone] after hours. Please call if: * you have copious blood in your urine * fevers greater than 101.3 F * you are unable to void The number for questions is [phone] before 5 PM weekdays and [phone] after 5 PM and weekends. Follow-up: With Dr. Cadet. documented in this encounter Procedure Notes Hitesh Cadet MD - 04/21/2019 11:00 AM EDTAssociated Order(s): CYSTOSCOPY Pre-Procedure Diagnose(s): Hematuria, unspecified type Patient: Anat Sneed Date of : 1955 SUBJECTIVE: This 64 y.o. years-old female presents for cystoscopy because of a history of gross hematuria. PROCEDURE - CYSTOSCOPY: Informed consent obtained from the patient and the patient was correctly identified. The patient was cystoscoped with a flexible scope following routine skin cleansing and drapping. 2% xylocaine gel was instillated into the urethra. The urethra was normal. The external genitalia were normal. The bladder mucosa was normal. Ureteral orifices were located in an orthotopic position, effluxing clear urine. No bladder tumors or foreign bodies were noted. The patient tolerated the procedure well. Patient was given ciprofloxacin IMPRESSION: Normal bladder PLAN: 1) Repeat cysto if and when the patient has gross hematuria. 2) urine cytology. 3) follow up with gynecology to discuss abnormal uterus. documented in this encounter Plan of Treatment Not on filedocumented as of this encounter Procedures Procedure Name Priority Date/Time Associated Diagnosis Comme nts NON-BRIAR CUTTER FINAL REPORT Routine 04/21/2019 11:45 Res ults for this AM EDT procedure are i n the results section. CYSTOSCOPY Routine 04/21/2019 11:00 Hematuria, Results for this AM EDT unspecified type procedure a re in the results section. documented in this encounter Results Non-Vocational Psychologist Final Report (04/21/2019 11:45 AM EDT) Component Value Ref Test Analysis Performed At [facility] gist Range Method Time Signature Non-Vocational Psychologist Final [id number] ? Location: [address] [place] [address] The signing pathologist has (i) examined the relevant preparation(s) for the [facility] specimen(s) and (ii) rendered or confirmed the diagnosis(es) . [facility] . ? No n-Vocational Psychologist Final DIAGNOSIS Negative for High Grade Urothelial Carcinoma See discussion. Electronically signed by: ??Dion HEATH, Jesse Verified: ??04/22/2019 ?Pathologist Performed at: ??-[facility] Dept. of Pathology, [place], [place] DISCUSSION Urine, voided: Urothelial cells and squamous cells. Reference: Frederick MCALLISTER, Jignesh mansfield EM, Melisa JIMENEZ. The [employer] System for Reporting Urinary Cytology. [place]: [place]; 2016. CLINICAL INFORMATION Specimen Source : Urine, voided Pertinent Clinical Data and Significant Therapy: Hematuria Clinical Impression : Hematuria Pertinent Radiologic Findings ??: (not provided) Gross Description: Received ??fresh approximately 30 mL total volume of ? ? clear, yellow fluid. Total Preparation: Liquid-Based Prep 1. Specimen (Source) Anatomical Collection Method Collection Time Re ceived Time Location / / Volume Laterality 04/21/2019 11:45 AM EDT Hitesh Cadet MD PATHOLOGY/CYTOLOGY ORDERABLE S Performing Organization Address City/State/[place] [address] documented in this encounter Visit Diagnoses Diagnosis Hematuria, unspecified type documented in this encounter Care Teams Call Center Trainer Relationship Specialty Start Date End Date Sera Pacheco APRN PCP - General Family Medicine 04/06/[address] [place] [address] documented as of this encounter
--- OUTSIDE RECORDS SUMMARY | 2022-01-18 01:27 | XMS_ITS | Encounter Summary ---
:1955 Author Organization [facility] [place] [address] Care Team Providers Name Role Phone Sera Pacheco APRN Primary Care Provider Encounter Details Date Type Department Care Team Description 04/12/2019 Orders Only [place] [facility] [place]anna Conrad, [facility] [place] [address] [facility] [phone] UROLOGY DEPT. [place], [place] [address] (Wo rk) Social History Tobacco Use Types Packs/Day Years Used Date Never Smoker Sex Assigned at Date Recorded Not on file documented as of this encounter Plan of Treatment Not on filedocumented as of this encounter Visit Diagnoses Not on filedocumented in this encounter Care Teams Sales Floor Manager Relationship Specialty Start Date End Date Sera Pacheco APRN PCP - General Family Medicine 04/06/[address] [place], [place] [address] documented as of this encounter
--- OUTSIDE RECORDS SUMMARY | 2022-01-18 01:28 | XMS_ITS | Clinical Summary ---
:1955 Author Organization [facility] Address [address] [place] [address] Care Team Providers Name Role Phone Uzma Jefferson MD Primary Care Provider Social History Tobacco Use Types Packs/Day Years Used Date Never Assessed Sex Assigned at Date Recorded Not on file Plan of Treatment Health Maintenance Due Date Last Done Comments Fall Risk Screening 2019 Care Teams Block Placer Relationship Specialty Start Date End Date Uzma Jefferson MD PCP - General 08/11/12 [address] [place], [place] [id number]
--- OUTSIDE RECORDS SUMMARY | 2022-01-18 01:28 | XMS_ITS | Encounter Summary ---
:[address] [facility] Address [address] [place] [address] Care Team Providers Name Role Phone Yaquelin Art Primary Care Provider Unavailable Marcus Guzmán MD Primary Care Provider Encounter Details Date Type Department Care Team Description 10/20/2006 Results Only [facility] Jaime MD [place] [address] [place] [address] [place] [address] Social History Tobacco Use Types Packs/Day Years Used Date Never Assessed Sex Assigned at Date Recorded Not on file documented as of this encounter Plan of Treatment Not on filedocumented as of this encounter Procedures Procedure Name Priority Date/Time Associated Diagnosis Comme [facility] CYTOPATHOLOGY Routine 10/20/2006 0:00 EDT Results for this procedure are i n the results section . documented in this encounter Results CYTOPATHOLOGY (10/20/2006 0:00 EDT) Pathology Report: CYTOPATHOLOGY REPORT [facility] Reports generated via electronic interface contain paty ginal data; however they are lacking the format of the original re port. Caution should be taken when reading/interpreting unfo rmatted reports. Name: ? ANAT SNEED ? Accession #: ? [id number] : ? 1955 (Age: 51) ??F ?Collect Date: ? 09/23 Location: ? [facility] ? Receive Date : ? 10/20/2006 Provider: ?DIAMANTE JAIME MD Copy to: ? Specimen/Source: ? ThinPrep Pap Test, Cervix/Endocervix, processed on BULX ThinPrep Imaging System, with manual evaluation Last Menstrual Period: ? 09/27/06 Hormonal/Contraceptive Status: ? Tubal ligation Other: ? Additional clinical information: No hormones HPVA - HPV testing requested if ASC-US on the current ThinPrep Pap test. ? SPECIMEN ADEQUACY ? Satisfactory for Evaluation - transformation zone component present GENERAL CATEGORIZATION ? Negative for Intraepithelial Lesion or Malignan cy ? Document reviewed and electronically signed by: ? CRISTY Mendez(ASCP) ? Report Date: ??10/23/2006 09:03 End of Report Specimen Performing Organization Address City/State/ZIP Code Phon e Number [facility] [address] [place] [address] SERVICES [facility] [address] [place] [address] documented in this encounter Visit Diagnoses Not on filedocumented in this encounter Care Teams Scrap Drop Engineer Relationship Specialty Start Date End Date Yaquelin Art PA PCP - General 05/25/09 08/10/12 Marcus Guzmán MD PCP - General 05/12/09 05/24/[address] [place], [place] [address] documented as of this encounter
--- OUTSIDE RECORDS SUMMARY | 2022-01-18 01:28 | XMS_ITS | Encounter Summary ---
:[address] [facility] Address [address] [place] [address] Care Team Providers Name Role Phone Uzma Jefferson MD Primary Care Provider Encounter Details Date Type Department Care Team Description 04/28/2017 Results Only [facility] Cu[facility], [address] [place] [address] [address] [place], [place] [id number] (Wo rk) Social History Tobacco Use Types Packs/Day Years Used Date Never Assessed Sex Assigned at Date Recorded Not on file documented as of this encounter Plan of Treatment Not on filedocumented as of this encounter Procedures Procedure Name Priority Date/Time Associated Diagnosis Comme [facility] SURGICAL PATHOLOGY Routine 04/28/2017 16:10 Resul ts for this EST procedure are i n the results section. documented in this encounter Results SURGICAL PATHOLOGY (04/28/2017 16:10 EST) Pathology Report: SURGICAL PATHOLOGY REPORT [facility] Reports generated via electronic interface contain paty ginal data; LABORATORY however they are lacking the format of the original re port. SERVICES Caution should be taken when reading/interpreting unfo rmatted reports. Name: ? ANAT SNEED ? Accession #: ? [id number] ? : ? 1955 (Age: [age]) ??F ? Collect Date: ? 04/28/2017 ? Location: ? [facility] ? Receive Date: ? 04/28/20 17 ? Provider: EVELYN ASHER MD Copy to: NEELAM MANRIQUE ASSEMBLY PERSON ? Final Pathologic Diagnosis: RECTUM, POLYP, BIOPSY: - ??Colonic mucosa with surface hyperplastic changes. - ??Deeper levels examined. Document reviewed and electronically signed by: ALISHA HAMMER MD Report ??Date: 05/01/2017 14:54 By the signature above, the attending physician certif ies that he/she has personally conducted a gross and/or microscopic examin ation of the described specimens and rendered or confirmed the above diagnosi s. Specimen(s) Received: Rectal polyp Clinical History: Screening; clinical diagnosis code: ??Z12.11 Gross Description: ? Received in formalin labelled with proper patient identification (initials E, E) and rectal polyp is a brown-avelar nodular tissu e, 0.2 x 0.2 x 0.2 cm. Entirely submitted in 1. BERNARDO Kong (ASCP) 04/29/2017 8:46 AM End of Report Specimen Performing Organization Address City/State/ZIP Code Phon e Number [facility] [address] [place] [address] SERVICES documented in this encounter Visit Diagnoses Not on filedocumented in this encounter Care Teams Case Packer Relationship Specialty Start Date End Date Uzma Jefferson MD PCP - General 08/11/12 [address] [place], [place] [address] documented as of this encounter
--- OUTSIDE RECORDS SUMMARY | 2022-01-18 01:28 | XMS_ITS | Encounter Summary ---
:1955 Author Organization [facility] Address [address] [place] [address] Care Team Providers Name Role Phone Unavailable Primary Care Provider Unavailable Encounter Details Date Type Department Care Team Description 11/17/2008 Orders Only [facility] Mackenzie Jaime MD Laboratory Services - [address] [place] [address] [place] [address] Social History Tobacco Use Types Packs/Day Years Used Date Never Assessed Sex Assigned at Date Recorded Not on file documented as of this encounter Plan of Treatment Not on filedocumented as of this encounter Procedures Procedure Name Priority Date/Time Associated Diagnosis Comme nts CYTOPATHOLOGY Routine 11/17/2008 0:00 EDT Results for this procedure are i n the results section . documented in this encounter Results CYTOPATHOLOGY (11/17/2008 0:00 EDT) Pathology Report: CYTOPATHOLOGY REPORT ? [facility] ALL EN ? LAB Reports generated via [employer] interface contain original data; ? however they are lacking the format of the original report. ? Caution should be taken when reading/interpreting unformatted reports. ? Name: ? SNEED, ANAT ? Accession #: ? [id number] ? : ? 1955 (Age: 53) ??F ?Collect Date: ? 11/17/2008 ? Location: ? [facility] ? Receive Date: ? 11/18/2008 ? Provider: ?MACKENZIE WENDIE L MD ? Copy to: ? Specimen/Source: ? Pap Test, Cervix/Endocervix, ThinPrep Imaging System ? with manual evaluation ? Last Menstrual Period: ? 5/10/09 ? Hormonal/Contraceptive Statu s: ? Tubal ligation ? SPECIMEN ADEQUACY ? Satisfactory for Eval uation ? - transformation zone compon ent present ? GENERAL CATEGORIZATION ? Negative for Intraepi thelial Lesion or Malignancy ? Document reviewed and electr onically signed by: ? Mame Abran, CT(ASCP ) ? Report Date: ??06/02/ 2009 16:28 ? End of Report ? Specimen Performing Organization Address City/State/ZIP Code Phon e Number [facility] [address] [place] [address] SERVICES [facility] [address] [place] [address] documented in this encounter Visit Diagnoses Not on filedocumented in this encounter
--- OUTSIDE RECORDS SUMMARY | 2022-01-18 01:28 | XMS_ITS | Encounter Summary ---
:1955 Author Organization [facility] Address [address] [place] [address] Care Team Providers Name Role Phone Dion Art Primary Care Provider Unavailable Encounter Details Date Type Department Care Team Description 08/07/2012 Results Only [facility] Mackenzie Jaime MD Laboratory Services - [address] [place] [address] [place] [address] Social History Tobacco Use Types Packs/Day Years Used Date Never Assessed Sex Assigned at Date Recorded Not on file documented as of this encounter Plan of Treatment Not on filedocumented as of this encounter Procedures Procedure Name Priority Date/Time Associated Diagnosis Comme [facility] SURGICAL PATHOLOGY Routine 08/07/2012 16:35 Resul ts for this EST procedure are i n the results section. documented in this encounter Results SURGICAL PATHOLOGY (08/07/2012 16:35 EST) Pathology Report: SURGICAL PATHOLOGY REPORT [facility] Reports generated via electronic interface contain paty ginal data; LAB however they are lacking the format of the original re port. Caution should be taken when reading/interpreting unfo rmatted reports. Name: ? ANAT SNEED ? Accession #: ? [id number] ? : ? 1955 (Age: 57) ??F ? Collect Date: ? 08/07/2012 ? Location: ? [facility] ? Receive Date: ? 013 ? Provider: MACKENZIE JAIME MD Copy to: DION CHANG ? Final Pathologic Diagnosis: ? Endometrium, biopsy: 1. ?Simple endometrial hyperplasia. ??See comment. 2. ? No cytologic atypia identified. 3. ? Scant strips of benign endocervical tissue. ? ? Comment: ? Reviewed in intradepartmental consultation conf erence who concur. Document reviewed and electronically signed by: VITO SAINI MD Report ??Date: 08/12/2012 11:36 By the signature above, the attending physician certif ies that he/she has personally conducted a gross and/or microscopic examin ation of the described specimens and rendered or confirmed the above diagnosi s. Specimen(s) Received: ? Endometrial bx Clinical History: ? PMB Gross Description: ? Received in formalin labelled Sneed, Anat and endometrium are multiple fragments of ejd-qyu-extvr soft tissue a dmixed with blood which measures 2.5 x 1.5 x 0.4 cm in aggregate. ? ?The specimen is submitted entirely as (1) and (2). (Dr. Sanon)/[facility] End of Report Specimen Performing Organization Address City/State/ZIP Code Phon e Number [facility] [address] [place] [address] SERVICES [facility] [address] [place] [address] documented in this encounter Visit Diagnoses Not on filedocumented in this encounter Care Teams Creative Arts Therapist Relationship Specialty Start Date End Date Dion Art PA PCP - General 05/25/09 08/10/12 documented as of this encounter
--- OUTSIDE RECORDS SUMMARY | 2022-01-18 01:28 | XMS_ITS | Encounter Summary ---
:1955 Author Organization [facility] Address [address] [place] [address] Care Team Providers Name Role Phone Yaquelin Art Primary Care Provider Unavailable Marcus Guzmán MD Primary Care Provider Encounter Details Date Type Department Care Team Description 11/13/2007 Results Only [facility] - Edwina Jaime MD Maple conversion [address] [place] [address] [place], [place] [phone] [id number] Social History Tobacco Use Types Packs/Day Years Used Date Never Assessed Sex Assigned at Date Recorded Not on file documented as of this encounter Plan of Treatment Not on filedocumented as of this encounter Procedures Procedure Name Priority Date/Time Associated Comments Diagnosis HPV DETECTION, HIGH Routine 11/13/2007 9:20 Resul ts for this RISK TYPES EDT procedure are i n the results section. CYTOPATHOLOGY Routine 11/13/2007 0:00 Results for this EDT procedure are i n the results section. documented in this encounter Results HUMAN PAPILLOMA VIRUS DNA TEST (11/13/2007 9:20 EDT) Specimen Description Cervix, ThinPrep [facility] AB vial Result Negative for HPV [facility] types 16, 18, 31, 33, 35, 39, 45, 51, 52, 56, 58, 59, and 68. Report Status Final [facility] [id number] Specimen Performing Organization Address City/State/ZIP Code Phon e Number [facility] [address] [place] [address] SERVICES [facility] [address] [place] [address] CYTOPATHOLOGY (11/13/2007 0:00 EDT) Pathology Report: CYTOPATHOLOGY REPORT [facility] Reports generated via electronic interface contain paty ginal data; however they are lacking the format of the original re port. Caution should be taken when reading/interpreting unfo rmatted reports. Name: ? ANAT SNEED ? Accession #: ? [id number] : ? 1955 (Age: 52) ??F ?Collect Date: ? 10/22 Location: ? [facility] ? Receive Date : ? 11/13/2007 Provider: ?DIAMANTE JAIME MD Copy to: ? Specimen/Source: ? ThinPrep Pap Test, Cervix/Endocervix, processed on [email or web address] ThinPrep Imaging System, with manual evaluation Last Menstrual Period: ? 11/13/07 Hormonal/Contraceptive Status: ? Tubal ligation Other: ? HPVDX - HPV testing requested regardless of diag nosis on current ThinPrep Pap test. ? SPECIMEN ADEQUACY ? Satisfactory for Evaluation - transformation zone component present GENERAL CATEGORIZATION ? Negative for Intraepithelial Lesion or Malignan cy ? Document reviewed and electronically signed by: ? WENDY Olvera(ASCP)(IAC) ? Report Date: ??11/18/2007 17:14 End of Report Specimen Performing Organization Address City/State/ZIP Code Phon e Number [facility] [address] [place] [address] SERVICES [facility] [address] [place] [address] documented in this encounter Visit Diagnoses Not on filedocumented in this encounter Care Teams Door To Door Salesman Relationship Specialty Start Date End Date Yaquelin Art PA PCP - General 05/25/09 08/10/12 Marcus Guzmán MD PCP - General 05/12/09 05/24/09 [address] [place] [address] documented as of this encounter
--- OUTSIDE RECORDS SUMMARY | 2022-01-18 01:28 | XMS_ITS | Encounter Summary ---
:1955 Author Organization [facility] Address [address] [place] [address] Care Team Providers Name Role Phone Dion Art Primary Care Provider Unavailable Encounter Details Date Type Department Care Team Description 09/11/2010 Results Only [facility] Mackenzie Jaime MD Laboratory Services - [address] [place] [address] [place] [address] Social History Tobacco Use Types Packs/Day Years Used Date Never Assessed Sex Assigned at Date Recorded Not on file documented as of this encounter Plan of Treatment Not on filedocumented as of this encounter Procedures Procedure Name Priority Date/Time Associated Diagnosis Comme nts SURGICAL PATHOLOGY Routine 09/11/2010 0:00 EDT Re sults for this procedure are i n the results section. documented in this encounter Results SURGICAL PATHOLOGY (09/11/2010 0:00 EDT) Pathology Report: SURGICAL PATHOLOGY REPORT ? [facility] Reports generated via [employer] interface contain original data; ? LAB however they are lacking the format of the original report. ? Caution should be taken when reading/interpreting unformatted reports. ? Name: ? SNEED, ANAT ? Accession #: ? [id number] ? : ? 1955 (Age: 55) ??F ? Collec t Date: ? 09/11/2010 ? Location: ? [facility] ? R eceive Date: ? 09/12/2010 ? Provider: MACKENZIE ADY MD ? Copy to: DION FELIPE PA ? Final Pathologic Diagnosis: ? Endometrium, biopsy: ? 1. ?Weakly prol iferative endometrium with tubal metaplasia. ? 2. ? No hyperplasia iden tified. ? Document reviewed and electr onically signed by: ? KATIE Julian BUTNOR MD ? Report ??Date: 09/14/2010 15 :56 ? By the signature above, the attending physician certifies that he/she has ? personally conducted a gross and/or microscopic examination of the described ? specimens and rendered or co nfirmed the above diagnosis. ? Specimen(s) Received: ? Endometrial bx ? Clinical History: ? AUB; control BT L ? Gross Description: ? Received in formalin labelled Sneed, Anat and endometrium is a 1.5 x ?? 0.7 x 0.3 cm aggregate of br own to red tissue admixed with mucinous material. ?? The specimen is submitted en tirely in one cassette. ??(J. Tessitore)/kmm ? End of Report ? Specimen Performing Organization Address City/State/ZIP Code Phon e Number [facility] [address] [place] [address] SERVICES [facility] [address] [place] [address] documented in this encounter Visit Diagnoses Not on filedocumented in this encounter Care Teams Alodize Machine Operator Relationship Specialty Start Date End Date Dion Art PA PCP - General 05/25/09 08/10/12 documented as of this encounter
--- OUTSIDE RECORDS SUMMARY | 2022-01-18 01:28 | XMS_ITS | Encounter Summary ---
:1955 Author Organization [facility] Address [address] [place] [address] Care Team Providers Name Role Phone Marcus Guzmán MD Primary Care Provider Encounter Details Date Type Department Care Team Description 05/23/2009 Orders Only [facility] Mackenzie Jaime MD Laboratory Services - [address] [place] [address] [place] [address] Social History Tobacco Use Types Packs/Day Years Used Date Never Assessed Sex Assigned at Date Recorded Not on file documented as of this encounter Plan of Treatment Not on filedocumented as of this encounter Procedures Procedure Name Priority Date/Time Associated Diagnosis Comme [facility] SURGICAL PATHOLOGY Routine 05/23/2009 0:00 EST Re sults for this procedure are i n the results section. documented in this encounter Results SURGICAL PATHOLOGY (05/23/2009 0:00 EST) Pathology Report: SURGICAL PATHOLOGY REPORT ? [facility] Reports generated via [employer] interface contain original data; ? LAB however they are lacking the format of the original report. ? Caution should be taken when reading/interpreting unformatted reports. ? Name: ? SNEED, ANAT ? Accession #: ? [id number] ? : ? 1955 (Age: 54) ??F ? Collec t Date: ? 05/23/2009 ? Location: ? [facility] ? R eceive Date: ? 05/24/2009 ? Provider: MACKENZIE ADY MD ? Copy to: DION FELIPE PA ? Final Pathologic Diagnosis: ? Endometrium, biopsy: ? - Fragmented inactive to wea kly proliferative endometrium with extensive tubal ?? metaplasia. ? Document reviewed and electr onically signed by: ? Bita N. Kalof, MD ? Report ??Date: 05/26/2009 11 :46 ? By the signature above, the attending physician certifies that he/she has ? personally conducted a gross and/or microscopic examination of the described ? specimens and rendered or co nfirmed the above diagnosis. ? Specimen(s) Received: ? Endometrial bx ? Clinical History: ? Irregular bleeding si nce 04/21/09, LMP: 04/21/09 control BTL ? Gross Description: ? Received in formalin labelled Sneed, Anat and endometrial bx is a 2.0 x 1.3 x 0.3 cm aggregate of ta n-brown soft tissue and clear mucinous material. ? The specimen is submitted en tirely as (A1) and (A2) following filtration. ??(A. ?? Ozuna)/cjh ? End of Report ? Specimen Performing Organization Address City/State/ZIP Code Phon e Number [facility] [address] [place] [address] SERVICES [facility] [address] [place] [address] documented in this encounter Visit Diagnoses Not on filedocumented in this encounter Care Teams Identifier Horse Relationship Specialty Start Date End Date Marcus Guzmán MD PCP - General 05/12/09 05/24/[address] [place] [address] documented as of this encounter
--- OUTSIDE RECORDS SUMMARY | 2022-01-18 01:28 | XMS_ITS | Encounter Summary ---
:1955 Author Organization [facility] Address [address] [place] [address] Care Team Providers Name Role Phone Uzma Jefferson MD Primary Care Provider Encounter Details Date Type Department Care Team Description 04/28/2017 Hospital Encounter [facility] - S Unknown, Pro Pietro lopez MD [address] [facility] [phone] [place] [address] (Work) [phone] Social History Tobacco Use Types Packs/Day Years Used Date Never Assessed Sex Assigned at Date Recorded Not on file documented as of this encounter Discharge Disposition Disposition Code Departure Means Destination Home or Self Nursing Home documented in this encounter Plan of Treatment Not on filedocumented as of this encounter Visit Diagnoses Not on filedocumented in this encounter Care Teams Utilities Service Investigator Relationship Specialty Start Date End Date Uzma Jefferson MD PCP - General 08/11/12 [address] [place], [place] [address] documented as of this encounter
--- OUTSIDE RECORDS SUMMARY | 2022-01-18 01:28 | XMS_ITS | Encounter Summary ---
:1955 Author Organization [facility] Address [address] [place] [address] Care Team Providers Name Role Phone Uzma Jefferson MD Primary Care Provider Encounter Details Date Type Department Care Team Description 01/03/2015 Results Only [facility]- Mackenzie Greenberg MD [phone] [address] [place] [address] Social History Tobacco Use Types Packs/Day Years Used Date Never Assessed Sex Assigned at Date Recorded Not on file documented as of this encounter Plan of Treatment Not on filedocumented as of this encounter Procedures Procedure Name Priority Date/Time Associated Diagnosis Comme nts PAP TEST- RESULT Routine 01/03/2015 0:00 EDT Resu lts for this ONLY procedure are i n the results section. documented in this encounter Results PAP TEST- RESULT ONLY (01/03/2015 0:00 EDT) Pathology Report: CYTOPATHOLOGY REPORT [facility] Reports generated via electronic interface contain paty ginal data; SERVICES however they are lacking the format of the original re port. Caution should be taken when reading/interpreting unfo rmatted reports. Name: ? AANT SNEED ? Accession #: ? [id number] ? : ? 1955 (Age: 5 0) ??F ?Collect Date: ? 01/03/2015 ? Location: ? [facility] ? Receive Date: ? 01/05/20 15 ? Provider: MACKENZIE GARSIA MD Copy to: DION CHANG ? Final Report SPECIMEN ADEQUACY ? Satisfactory for Evaluation - transformation zone component present - scant squamous epithelial component GENERAL CATEGORIZATION ? Negative for Intraepithelial Lesion or Malignan cy ?? Specimen/Source: ??Pap Test, Cervix/Endocervix, ThinPr ep Imaging System with manual evaluation Document reviewed and electronically signed by: ? Jazmin Bailey, CT(ASCP) ? Report ??Date: 01/10/2015 13:47 HPV with Pap Test ? Date Ordered: ? 01/10/2015 ? Status: ?? Signed Out ?Date Complete: ? 01/11/2015 ? By: ??Sy stem Interface ? Date Reported: ? 01/11/2015 ? Interpretation RESULT: Negative for HPV. No E6 or E7 mRNA is detected from HPV types 16,18,31,3 3,35, 39,45,51,52,56,58,59,66, and 68 by mixed livestock farm worker media jeffrey amplification. Comments Document reviewed and electronically signed by: ? System Interface ? Report date: 01/11/2015 By the signature above, the attending physician certif ies that he/she has personally conducted a gross and/or microscopic examin ation of the described specimens and rendered or confirmed the above diagnosi s. End of Report Specimen Performing Organization Address City/State/ZIP Code Phon e Number [facility] [address] [place] [address] SERVICES documented in this encounter Visit Diagnoses Not on filedocumented in this encounter Care Teams Machine Wedger Relationship Specialty Start Date End Date Uzma Jefferson MD PCP - General 08/11/12 [address] [place] [address] documented as of this encounter
--- OUTSIDE RECORDS SUMMARY | 2022-01-18 01:28 | XMS_ITS | Encounter Summary ---
:1955 Author Organization [facility] Address [address] [place] [address] Care Team Providers Name Role Phone Yaquelin rAt Primary Care Provider Unavailable Marcus Guzmán MD Primary Care Provider Encounter Details Date Type Department Care Team Description 11/12/2006 Results Only [facility] - Edwina Jaime MD Maple conversion [address] [place] [address] [place] [address] Social History Tobacco Use Types Packs/Day Years Used Date Never Assessed Sex Assigned at Date Recorded Not on file documented as of this encounter Plan of Treatment Not on filedocumented as of this encounter Procedures Procedure Name Priority Date/Time Associated Diagnosis Comme [facility] SURGICAL PATHOLOGY Routine 11/12/2006 0:00 EDT Re sults for this procedure are i n the results section. documented in this encounter Results SURGICAL PATHOLOGY (11/12/2006 0:00 EDT) Pathology Report: SURGICAL PATHOLOGY REPORT [facility] Reports generated via electronic interface contain paty ginal data; LAB however they are lacking the format of the original re port. Caution should be taken when reading/interpreting unfo rmatted reports. Name: ? ANAT SNEED ? Accession #: ? [id number] ? : ? 1955 (Age: 51) ??F ? Collect Date: ? 11/12/2006 ? Location: ? [facility] ? Receive Date: ? 007 ? Provider: DIAMANTE JAIME MD Copy to: ? Final Pathologic Diagnosis: ? Endometrium, biopsy: 1. ?Benign proliferative-type endometrium with: ? - ??Focal glandular and stromal breakdown. ? - ??Tubal metaplasia. ? 2. ??No chronic endometritis, polyp, hyperplasi a or malignancy. Document reviewed and electronically signed by: Alice Torres MD Report ??Date: 11/13/2006 15:00 By the signature above, the attending physician certif ies that he/she has personally conducted a gross and/or microscopic examin ation of the described specimens and rendered or confirmed the above diagnosi s. Specimen(s) Received: ? Endometrial bx Clinical History: ? Fibroid uterus, irregular bleeding; LMP: 10/28/06 Gross Description: ? Received in formalin labelled Sened and endometrial bx is a 3.2 x 2.1 x 0.4 cm aggregate of hemorrhagic red-brown soft t issue admixed with mucus. The specimen is submitted in toto as (A1) and (A2). (Kendy Shaffer/[facility] End of Report Specimen Performing Organization Address City/State/ZIP Code Phon e Number [facility] [address] [place] [address] SERVICES [facility] [address] [place] [address] documented in this encounter Visit Diagnoses Not on filedocumented in this encounter Care Teams Group Sales Manager Relationship Specialty Start Date End Date Yaquelin Art PA PCP - General 05/25/09 08/10/12 Marcus Guzmán MD PCP - General 05/12/09 05/24/[address] [address] documented as of this encounter
--- OUTSIDE RECORDS SUMMARY | 2022-01-18 01:28 | XMS_ITS | Encounter Summary ---
:1955 Author Organization [facility] Address [address] [place] [address] Care Team Providers Name Role Phone Uzma Jefferson MD Primary Care Provider Encounter Details Date Type Department Care Team Description 04/05/2019 Results Only [facility]- Uzma Vasquez, [address] [place] [address] (Wo rk) Social History Tobacco Use Types Packs/Day Years Used Date Never Assessed Sex Assigned at Date Recorded Not on file documented as of this encounter Plan of Treatment Not on filedocumented as of this encounter Procedures Procedure Name Priority Date/Time Associated Diagnosis Comme nts PAP TEST- RESULT Routine 04/05/2019 0:00 EDT Resu lts for this ONLY procedure are i n the results section. documented in this encounter Results PAP TEST- RESULT ONLY (04/05/2019 0:00 EDT) Pathology Report: CYTOPATHOLOGY REPORT [facility] Reports generated via electronic interface contain paty ginal data; SERVICES however they are lacking the format of the original re port. Caution should be taken when reading/interpreting unfo rmatted reports. Name: ? ANAT SNEED ? Accession #: ? [id number] : ? 1955 (Age: [age]) ??F ?Collect Date: ? 03/23 Location: ? [facility] ? Receive Date : ? 04/06/2019 Provider: ?UZMA MALDONADO MD Copy to: ?ANABELL THACKERBri ELECTRON GUN ASSEMBLER-BC ? Specimen/Source: ? Pap Test, Cervix/Endocervix, ThinPrep Imaging System with manual evaluation Last Menstrual Period: ? Other: ? Post menopausal bleeding ? SPECIMEN ADEQUACY ? Unsatisfactory for Evaluation, - insufficient numbers of squamous epith elial cells (less than 10% of expected cellularity) GENERAL CATEGORIZATION ? Specimen processed and examined, but unsatisfac tory for evaluation of epithelial abnormality. Recommend Pap test in 2- 4 months as stated in ASCCP's 2012 Updated Guidelines. HPV testing will not be performed due to the potential for false negative results. ? Document reviewed and electronically signed by: ? WENDY Alvarez(ASCP) ? Report Date: ??04/08/2019 14:38 End of Report Specimen Performing Organization Address City/State/ZIP Code Phon e Number [facility] [address] [place] [address] SERVICES documented in this encounter Visit Diagnoses Not on filedocumented in this encounter Care Teams Floor Installation Mechanic Relationship Specialty Start Date End Date Uzma Jefferson MD PCP - General 08/11/12 [address] [place], [place] [id number] documented as of this encounter
--- OUTSIDE RECORDS SUMMARY | 2022-01-18 01:28 | XMS_ITS | Encounter Summary ---
:1955 Author Organization [facility] Address [address] [place] [address] Care Team Providers Name Role Phone Yaquelin Art Primary Care Provider Unavailable Marcus Guzmán MD Primary Care Provider Encounter Details Date Type Department Care Team Description 10/04/2005 Results Only [facility] - Edwina Jaime MD Maple conversion [address] [place] [address] [place] [address] Social History Tobacco Use Types Packs/Day Years Used Date Never Assessed Sex Assigned at Date Recorded Not on file documented as of this encounter Plan of Treatment Not on filedocumented as of this encounter Procedures Procedure Name Priority Date/Time Associated Diagnosis Comme [facility] CYTOPATHOLOGY Routine 10/04/2005 0:00 EDT Results for this procedure are i n the results section . documented in this encounter Results CYTOPATHOLOGY (10/04/2005 0:00 EDT) Pathology Report: CYTOPATHOLOGY REPORT [facility] Reports generated via electronic interface contain paty ginal data; however they are lacking the format of the original re port. Caution should be taken when reading/interpreting unfo rmatted reports. Name: ? ANAT SNEED ? Accession #: ? [id number] : ? 1955 (Age: 50) ??F ?Collect Date: ? 09/21 Location: ? [facility] ? Receive Date : ? 10/07/2005 Provider: ?DIAMANTE JAIME MD Copy to: ? Specimen/Source: ? ThinPrep Pap Test, Cervix/Endocervix, processed on Drill Cycle ThinPrep Imaging System, with manual evaluation Last Menstrual Period: ? 09/24/05 Hormonal/Contraceptive Status: ? Tubal ligation Other: ? HPVA - HPV testing requested if ASC-US on the current ThinPrep Pap test. ? SPECIMEN ADEQUACY ? Satisfactory for Evaluation - transformation zone component present GENERAL CATEGORIZATION ? Negative for Intraepithelial Lesion or Malignan cy ? Document reviewed and electronically signed by: ? WENDY Aguirre(ASCP) ? Report Date: ??10/09/2005 07:26 End of Report Specimen Performing Organization Address City/State/ZIP Code Phon e Number [facility] [address] [place] [address] SERVICES [facility] [address] [place] [address] documented in this encounter Visit Diagnoses Not on filedocumented in this encounter Care Teams Banking Services Advisor Relationship Specialty Start Date End Date Yaquelin Art PA PCP - General 05/25/09 08/10/12 Marcus Guzmán MD PCP - General 05/12/09 05/24/[address] [place] [id number] documented as of this encounter
--- OUTSIDE RECORDS SUMMARY | 2022-01-18 01:28 | XMS_ITS | Encounter Summary ---
:1955 Author Organization [facility] Address [address] [place] [address] Care Team Providers Name Role Phone Yaquelin Art Primary Care Provider Unavailable Encounter Details Date Type Department Care Team Description 11/24/2009 Results Only [facility] Mackenzie Jaime MD Laboratory Services - [address] [place] [address] [place] [address] Social History Tobacco Use Types Packs/Day Years Used Date Never Assessed Sex Assigned at Date Recorded Not on file documented as of this encounter Plan of Treatment Not on filedocumented as of this encounter Procedures Procedure Name Priority Date/Time Associated Diagnosis Comme nts CYTOPATHOLOGY Routine 11/24/2009 0:00 EDT Results for this procedure are i n the results section . documented in this encounter Results CYTOPATHOLOGY (11/24/2009 0:00 EDT) Pathology Report: CYTOPATHOLOGY REPORT ? [facility] ? LAB Reports generated via electr WISErg interface contain original data; ? however they are lacking the format of the original report. ? Caution should be taken when reading/interpreting unformatted reports. ? Name: ? ANAT SNEED ? Accession #: ? [id number] ? : ? 1955 (Age: 54) ??F ?Collect Date: ? 11/24/2009 ? Location: ? [facility] ? Receive Date: ? 11/27/2009 ? Provider: ?MACKENZIE WENDIE L MD ? Copy to: ? Specimen/Source: ? Pap Test, Cervix/Endocervix, ThinPrep Imaging System ? with manual evaluation ? Last Menstrual Period: ? 04/04/10 ? Hormonal/Contraceptive Statu s: ? Tubal ligation ? Other: ? HPVA - HPV testing requested if ASC-US on the current ThinPrep Pap test. ? SPECIMEN ADEQUACY ? Satisfactory for Eval uation ? - transformation zone compon ent present ? - scant squamous epithelial component ? GENERAL CATEGORIZATION ? Negative for Intraepi thelial Lesion or Malignancy ? Document reviewed and electr onically signed by: ? Mary V[place](ASCP) ? Report Date: ??06/09/ 2010 12:53 ? End of Report ? Specimen Performing Organization Address City/State/ZIP Code Phon e Number [facility] [address] [place] [address] SERVICES [facility] [address] [place] [address] documented in this encounter Visit Diagnoses Not on filedocumented in this encounter Care Teams Religious Ritual Slaughterer Relationship Specialty Start Date End Date Yaquelin Art PA PCP - General 05/25/09 08/10/12 documented as of this encounter
--- OUTSIDE RECORDS SUMMARY | 2022-01-18 01:28 | XMS_ITS | Encounter Summary ---
:1955 Author Organization [facility] Address [address] [place] [address] Care Team Providers Name Role Phone Yaquelin Art Primary Care Provider Unavailable Marcus Guzmán MD Primary Care Provider Encounter Details Date Type Department Care Team Description 10/30/2005 Results Only [facility] - Edwina Jaime MD Maple conversion [address] [place] [address] [place] [address] Social History Tobacco Use Types Packs/Day Years Used Date Never Assessed Sex Assigned at Date Recorded Not on file documented as of this encounter Plan of Treatment Not on filedocumented as of this encounter Procedures Procedure Name Priority Date/Time Associated Diagnosis Comme [facility] SURGICAL PATHOLOGY Routine 10/30/2005 0:00 EDT Re sults for this procedure are i n the results section. documented in this encounter Results SURGICAL PATHOLOGY (10/30/2005 0:00 EDT) Pathology Report: SURGICAL PATHOLOGY REPORT [facility] Reports generated via electronic interface contain paty ginal data; LAB however they are lacking the format of the original re port. Caution should be taken when reading/interpreting unfo rmatted reports. Name: ? ANAT SNEED ? Accession #: ? [id number] ? : ? 1955 (Age: 50) ??F ? Collect Date: ? 10/30/2005 ? Location: ? [facility] ? Receive Date: ? 006 ? Provider: DIAMANTE JAIME MD Copy to: MARCUS GUZMÁN MD ? Final Pathologic Diagnosis: ? Endometrium, biopsy: 1. ?Simple hyperplasia. 2. ?No cytologic atypia identified. Document reviewed and electronically signed by: KOBI HOOPER MD Report ??Date: 10/31/2005 15:37 By the signature above, the attending physician certif ies that he/she has personally conducted a gross and/or microscopic examin ation of the described specimens and rendered or confirmed the above diagnosi s. Specimen(s) Received: ? Endometrial bx Clinical History: ? Irregular bleeding, no hormones; LMP: 10/18/05 Gross Description: ? Received in formalin labelled Sneed and endometrial bx at 0840 are multiple brown focally sheriff f ragments of soft tissue measuring in aggregate 4.0 x 2.0 x 0.3 cm. ??Entirely submitted as (A1) and (A2). ? ?([place] End of Report Specimen Performing Organization Address City/State/ZIP Code Phon e Number [facility] [address] [place] [address] SERVICES [facility] [address] [place] [address] documented in this encounter Visit Diagnoses Not on filedocumented in this encounter Care Teams Edge Burnisher Relationship Specialty Start Date End Date Yaquelin Art PA PCP - General 05/25/09 08/10/12 Marcus Guzmán MD PCP - General 05/12/09 05/24/09 [address] [place], [place] [id number] documented as of this encounter
[2022-01-18 08:43] LABS: ALT 30 U/L (14-59); AST 26 U/L (15-37); Albumin 3.8 g/dL (3.4-5.0); Alkaline Phosphatase 93 U/L (46-116); Anion Gap 8.2 mmol/L (3-11); BUN 18 mg/dL (7-18); Bilirubin, Total 0.4 mg/dL (0.2-1.0); CO2 28.8 mmol/L (21.0-32.0); CREATININE 0.8 mg/dL (0.55-1.02); Calcium 8.9 mg/dL (8.5-10.1); Calculated LDL 125 mg/dL (<100); Chloride 100 mmol/L (98-107); Cholesterol 257 mg/dL (<200); Glucose 85 mg/dL (74-106); HDL Cholesterol 125 mg/dL (40-60); Potassium 3.9 mmol/L (3.5-5.1); Sodium 137 mmol/L (136-145); Total Protein 7.7 g/dL (6.4-8.2); Triglyceride 36 mg/dL (<150)
== END 2022-01-18 01:26 | disposition home or self-care (01) ==
LOC: LBO 01:25
DX: E78.5 Hyperlipidemia, unspecified (principal); G43.909 Migraine, unspecified, not intractable, without status migrainosus; M54.2 Cervicalgia
CPT/HCPCS: 36415; 80053; 80061

== ENCOUNTER 2024-02-20 01:29 | Outpatient (CLI) | payer MEDICARE, BC, SELFPAY ==
[2024-02-20 08:08] LABS: Anion Gap 6.7 mmol/L (3-11); BUN 22 mg/dL (7-18); CO2 28.3 mmol/L (21.0-32.0); CREATININE 0.8 mg/dL (0.55-1.02); Calcium 9.1 mg/dL (8.5-10.1); Chloride 102 mmol/L (98-107); Estimated GFR 79.22 (mL/min/1.73m2); Glucose 99 mg/dL (74-106); Potassium 4.1 mmol/L (3.5-5.1); Sodium 137 mmol/L (136-145)
== END 2024-02-20 01:30 | disposition home or self-care (01) ==
PROVIDERS: PCP Nurse Practitioner Family; Visit Provider Nurse Practitioner Family
DX: Z13.1 Encounter for screening for diabetes mellitus (principal)
CPT/HCPCS: 36415; 80048

== ENCOUNTER 2024-07-25 16:02 | Outpatient (REF) | payer MEDICARE, BC, SELFPAY ==
[2024-07-25 10:06] LABS: Creatinine,Urine 23.59 mg/dL
[2024-07-25 10:11] LABS: Creatinine,24hr Ur 0.66 g/24hr (0.60-1.80); Total Volume 2825 ml
[2024-07-27 09:44] LABS: Calcium Urine 5.5 mg/dL (See Note); Calcium Urine 24 hr 155 mg/24hr (100-300); Timed Urine Volume 2825 mL
== END 2024-07-25 16:03 | disposition home or self-care (01) ==
LOC: LBN 16:02
PROVIDERS: PCP Nurse Practitioner Family; Visit Provider Internal Medicine
DX: M81.0 Age-related osteoporosis without current pathological fracture (principal)
CPT/HCPCS: 81050; 82340; 82570

== ENCOUNTER 2024-11-04 01:09 | Outpatient (CLI) | payer MEDICARE, BC, SELFPAY ==
--- NOTE | 2024-11-04 11:23 | DI.RAD_ITS ---
Exam(s) XR SHOULDER LT COMPLETE 2+V EXAM: XR SHOULDER LT COMPLETE 2+V CLINICAL HISTORY: left shoulder pain,m25.512. TECHNIQUE: 2D digital imaging was performed of the left shoulder. Five images were obtained. AP, G rashey, Y-view and axillary views were obtained. COMPARISON: CR XR shoulder LT complete 2+V from 01/21/2019 FINDINGS: BONES: No acute fracture is present. No bony destructive lesion is seen. JOINTS: No dislocation present. The glenohumeral and acromioclavicular joints are well maintained. SOFT TISSUE: Normal. IMPRESSION: Unremarkable radiographs of the left shoulder. DATA REPOSITORY: RADIATION DOSE DELIVERED:
== END 2024-11-04 01:29 ==
LOC: DI 01:09
PROVIDERS: PCP Nurse Practitioner Family; Visit Provider Nurse Practitioner Family
DX: M25.512 Pain in left shoulder (principal)
CPT/HCPCS: 73030

== ENCOUNTER 2025-02-15 03:15 | Outpatient (CLI) | payer MEDICARE, BC, SELFPAY ==
[2025-02-15 12:59] LABS: Anion Gap 5.7 mmol/L (3-11); BUN 21 mg/dL (7-18); CO2 31.3 mmol/L (21.0-32.0); Calcium 9.0 mg/dL (8.5-10.1); Chloride 100 mmol/L (98-107); Estimated GFR 78.72 (mL/min/1.73m2); Glucose 87 mg/dL (74-106); Potassium 4.0 mmol/L (3.5-5.1); Sodium 137 mmol/L (136-145)
== END 2025-02-15 03:16 | disposition home or self-care (01) ==
LOC: LOS 03:15
PROVIDERS: PCP Nurse Practitioner Family; Visit Provider Nurse Practitioner Family
DX: Z13.1 Encounter for screening for diabetes mellitus (principal)
CPT/HCPCS: 36415; 80048

== ENCOUNTER 2025-03-24 04:33 | Outpatient (CLI) | payer MEDICARE, BC, SELFPAY ==
--- NOTE | 2025-03-24 07:00 | DI.RAD_ITS ---
Exam(s) XR KNEE RT 3V AP,LAT,BASILIO EXAM: XR KNEE RT 3V AP,LAT,BASILIO CLINICAL HISTORY: persistent rt knee pain,m25.561. TECHNIQUE: 2D digital imaging was performed. Three views. COMPARISON: No exams were available for comparison FINDINGS: BONES: No acute fracture is present. No bony destructive lesion is seen. JOINTS: The joint spaces are maintained. There is no significant periarticular spurring. The knee is normally aligned. No joint effusion is seen. SOFT TISSUE: Normal. IMPRESSION: Unremarkable radiographs of the right knee. DATA REPOSITORY: RADIATION DOSE DELIVERED:
== END 2025-03-24 04:53 ==
LOC: DI 04:33
PROVIDERS: PCP Nurse Practitioner Family; Visit Provider Nurse Practitioner Family
DX: M25.561 Pain in right knee (principal)
CPT/HCPCS: 73562